=== PATIENT | female | born 1940 | race Caucasian/White ===

== ENCOUNTER 2021-02-06 19:51 | Inpatient (IN) | payer MEDICARE, BC ==
[2021-02-06] MEDS ORDERED: Sodium Chloride 0.9% 10 ML Syringe FLUSH PRN (20:02)
[2021-02-06] MEDS ORDERED: Sodium Chloride 0.9% 1,000 ML IV SCH (20:45)
[2021-02-06] MEDS ORDERED: cefTRIAXone 1 GM in Sodium Chloride 0.9% 50 ML IV ONE (22:15)
--- NOTE | 2021-02-06 23:00 | EDM.PDOC ---
ED HPI GENERAL MEDICAL PROBLEM - General Chief Complaint: Cardiovascular Problem Stated Complaint: WEAKNESS/HEART RATE OFF Time Seen by Provider: 02/06/21 19:56 Source of Information: Reports: Patient, RN Notes Reviewed History Limitations: Reports: Other (confused at times to situation, alert to self and place, day and time) - History of Present Illness INITIAL COMMENTS - FREE TEXT/NARRATIVE: Renay presents today for complaints of palpitations, chills, feeling shaky, sick to her stomach. She denies nausea, states "I am sick to my stomach". Patient repeatedly asked to open her eyes during exam. GCS 15. She states she has not taken her medications since 02/04/2021 in the evening. Renay was brought in by neighbors after she telephoned them. They state they found her walking around, not making sense when she spoke. Upon presentation Renay is answering questions, has equal strength to all extremities, equal tactile sensation to all extremities. No fever, tachycardia or abnormal blood pressure. - Related Data Allergies Allergy/AdvReac Type Severity Reaction Status Date / Time methotrexate Allergy Cannot Verified 01/06/14 13:48 Remember Home Meds: Home Meds Aspirin [Low Dose Aspirin EC] 81 mg PO DAILY 04/19/16 [History] Biotin 5,000 mcg PO DAILY 04/19/16 [History] Gabapentin [Neurontin] 600 mg PO BID 04/19/16 [History] Gluc White 2KCl/Chondr/Vit C/Herminio [Glucosamine-Chondr Complex] 1,500 mg PO BID 04/19/16 [History] Levothyroxine Sodium [Synthroid] 100 mcg PO ACBREAKFAST 04/19/16 [History] Loperamide [Imodium] 2 mg PO DAILY 04/19/16 [History] Oxybutynin Chloride 5 mg PO DAILY 04/19/16 [History] Ubidecarenone [Coenzyme Q10] 10 mg PO DAILY 04/19/16 [History] Calcium Carbonate/Vitamin D3 [Calcium 600 + Vit D Tablet] 1 tab PO DAILY 05/20/19 [History] Metoprolol Tartrate [Lopressor] 12.5 mg PO BID 05/20/19 [History] Amiodarone [Cordarone] 200 mg PO DAILY 12/10/20 [History] Bumetanide 0.5 mg PO DAILY 12/10/20 [History] Rivaroxaban [Xarelto] 15 mg PO DAILY 12/10/20 [History] Spironolactone [Aldactone] 12.5 mg PO DAILY 12/10/20 [History] atorvaSTATin [Lipitor] 20 mg PO DAILY 12/10/20 [History] Bumetanide [Bumex] 0.5 mg PO DAILY 02/06/21 [History] Clopidogrel [Plavix] 75 mg PO DAILY 02/06/21 [History] Cyanocobalamin (Vitamin B-12) [B-12] 1,200 mcg PO DAILY 02/06/21 [History] Furosemide [Lasix] 20 mg PO DAILY 02/06/21 [History] Gabapentin [Neurontin] 600 mg PO BID 02/06/21 [History] Multivitamin [Multi-Day Vitamins] 1 tab PO DAILY 02/06/21 [History] Simvastatin 20 mg PO ACDINNER 02/06/21 [History] Tamoxifen [Nolvadex] 20 mg PO DAILY 02/06/21 [History] Zolpidem Tartrate [Ambien] 10 mg PO BEDTIME PRN 02/06/21 [History] Past Medical History HEENT History: Reports: None Cardiovascular History: Reports: Afib, NH, Stents Respiratory History: Reports: None Gastrointestinal History: Reports: None Genitourinary History: Reports: None 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 R shoulder injury, fell 08/02/19. right knee pain Neurological History: Reports: None Psychiatric History: Reports: None Endocrine/Metabolic History: Reports: Hypothyroidism Hematologic History: Reports: None Immunologic History: Reports: None Oncologic (Cancer) History: Reports: Breast Dermatologic History: Reports: None, Other (See Below) Other Dermatologic History: skin cancer left lower leg with open wound. skin cancer on chest and neck - Infectious Disease History Infectious Disease History: Reports: Chicken Pox, Mumps - Past Surgical History Head Surgeries/Procedures: Reports: None Cardiovascular Surgical History: Reports: None GI Surgical History: Reports: Appendectomy, Hernia Repair/Other Female Surgical History: Reports: Breast Reconstruction, Hysterectomy, Mastectomy, Oophorectomy Musculoskeletal Surgical History: Reports: Hip Replacement Other Musculoskeletal Surgeries/Procedures:: bilateral hip replacements Oncologic Surgical History: Reports: Mastectomy Social & Family History - Tobacco Use Tobacco Use Status *Q: Never Tobacco User - Caffeine Use Caffeine Use: Reports: Coffee - Recreational Drug Use Recreational Drug Use: No ED ROS GENERAL - Review of Systems Review Of Systems: See Below Constitutional: Reports: Fever, Chills, Weakness, Diaphoresis HEENT: Reports: No Symptoms Respiratory: Reports: No Symptoms Cardiovascular: Reports: No Symptoms Endocrine: Reports: No Symptoms GI/Abdominal: Reports: Other (patient states "I am sick to my stomach"). Denies: Abdominal Pain, Anorexia, Black Stool, Bloody Stool, Constipation, Diarrhea, Distension, Nausea, Vomiting : Reports: No Symptoms Musculoskeletal: Reports: No Symptoms Skin: Reports: No Symptoms Neurological: Reports: Confusion, Difficulty Walking, Weakness. Denies: Dizziness, Headache, Numbness, Paresthesia, Pre-Existing Deficit, Seizure, Syncope, Tingling, Tremors, Trouble Speaking, Change in Speech Psychiatric: Reports: Anxiety, Confusion. Denies: Agitation, Depression, Hallucinations, Suicidal Ideation Hematologic/Lymphatic: Reports: No Symptoms Immunologic: Reports: No Symptoms ED EXAM, GENERAL - Physical Exam Exam: See Below Exam Limited By: Other (GCS 15, confused at times, however alert x 3) General Appearance: Alert, WD/WN, Moderate Distress Eye Exam: Bilateral Eye: EOMI, Normal Inspection, PERRL Ears: Normal External Exam, Normal Canal, Hearing Grossly Normal, Normal TMs Throat/Mouth: Normal Inspection, Normal Lips, Normal Gums, Normal Oropharynx, Normal Voice, No Airway Compromise Head: Atraumatic, Normocephalic Neck: Normal Inspection, Supple, Non-Tender, Full Range of Motion. No: Lymphadenopathy (R), Lymphadenopathy (L) Respiratory/Chest: No Respiratory Distress, Lungs Clear, Normal Breath Sounds, No Accessory Muscle Use, Chest Non-Tender. No: Crackles, Rales, Rhonchi, Wheezing Cardiovascular: Normal Peripheral Pulses, Regular Rate, Rhythm, No Edema, No Gallop, No Murmur, No Rub Peripheral Pulses: 4+: Dorsalis Pedis (L), Dorsalis Pedis (R) GI/Abdominal: Normal Bowel Sounds, Soft, Non-Tender, No Organomegaly, No Distention, No Mass, Pelvis Stable. No: Guarding, Rigid, Rebound, Tender Back Exam: Normal Inspection, Full Range of Motion. No: CVA Tenderness (R), CVA Tenderness (L) Extremities: Normal Range of Motion, Normal Capillary Refill, Leg Pain (left leg to area of chronic wound secondary to skin cancer removal x 4. Trace edema bilateral lower extremities). No: Increased Warmth Neurological: Alert, Oriented, Normal Reflexes, No Motor/Sensory Deficits, Inattentive Psychiatric: Anxious Skin Exam: Warm, Dry, No Rash, Rash (urticaria in macular/papular patches to bilateral upper thighs ), Wound/Incision (chronic wound to LLE, history of skin cancer removal x 4, wound management per Dr. Arrington. Dressing removed and replaced. Noted circular wound withslough to wound bed, surrounding tissues pink without erythema or fluctuance. ). No: Ecchymosis, Erythema, Increased Warmth Lymphatic: No Adenopathy #1 Interpretation EKG Date: 02/06/21 Time: 20:05 Rhythm: NSR Rate (Beats/Min): 66 P-Wave: Present QRS: LBBB ST-T: Normal QT: Normal Comparison: NA - No Prior EKG Course - Vital Signs Last Recorded V/S: Last Vital Signs Temp 37.3 C 02/06/21 20:30 Pulse 68 02/06/21 22:43 Resp 11 L 02/06/21 22:43 BP 140/58 L 02/06/21 22:43 Pulse Ox 98 02/06/21 22:43 - Orders/Labs/Meds Orders: Active Orders 24 hr Category Date Time Status EKG Documentation Completion [RC] ASDIRECTED Care 02/06/21 20:03 Active Chest 1V Frontal [CR] Stat Exams 02/06/21 20:02 Taken Head wo Cont [CT] Stat Exams 02/06/21 23:06 Ordered CULTURE URINE [RM] Stat Lab 02/06/21 23:43 Ordered Sodium Chloride 0.9% [Normal Saline] 1,000 ml Med 02/06/21 20:45 Active IV ASDIRECTED Sodium Chloride 0.9% [Saline Flush] Med 02/06/21 20:02 Active 10 ml FLUSH ASDIRECTED PRN Saline Lock Insert [OM.PC] Routine Oth 02/06/21 20:02 Ordered EKG 12 Lead [EK] Routine Ther 02/06/21 20:02 Ordered Medication Orders Sodium Chloride (Normal Saline) 1,000 mls @ 500 mls/hr IV ASDIRECTED HERI Last Admin: 02/06/21 21:01 Dose: 500 mls/hr Documented by: ANGIE Sodium Chloride (Sodium Chloride 0.9% 10 Ml Syringe) 10 ml FLUSH ASDIRECTED PRN PRN Reason: Keep Vein Open Last Admin: 02/06/21 21:01 Dose: 10 ml Documented by: ANGIE Labs: Laboratory Tests 02/06/21 02/06/21 02/06/21 Range/Units 20:13 20:13 20:21 WBC 6.1 (4.5-11.0) K/uL RBC 3.71 (3.30-5.50) M/uL Hgb 12.2 (12.0-15.0) g/dL Hct 36.7 (36.0-48.0) % MCV 99 H (80-98) fL MCH 33 H (27-31) pg MCHC 33 (32-36) % Plt Count 127 L (150-400) K/uL Neut % (Auto) Residential Counselor Lymph % (Auto) Residential Counselor Dupage % (Auto) Residential Counselor Eos % (Auto) Residential Counselor Baso % (Auto) Residential Counselor Add Manual Diff Yes Neutrophils % (Manual) 75 H (36-66) % Band Neutrophils % 9 (5-11) % Lymphocytes % (Manual) 10 L (24-44) % Monocytes % (Manual) 3 (2-6) % Eosinophils % (Manual) 3 (2-4) % Anisocytosis Rare Macrocytosis Rare Sodium 138 L (140-148) mmol/L Potassium 4.3 (3.6-5.2) mmol/L Chloride 103 (100-108) mmol/L Carbon Dioxide 22 (21-32) mmol/L Anion Gap 17.3 H (5.0-14.0) mmol/L BUN 18 (7-18) mg/dL Creatinine 1.5 H (0.6-1.0) mg/dL Est Cr Clr Drug Dosing 27.36 mL/min Estimated GFR (MDRD) 33 L (>60) Glucose 93 (74-106) mg/dL Lactic Acid 2.0 (0.4-2.0) mmol/L Calcium 8.3 L (8.5-10.1) mg/dL Total Bilirubin 1.5 H (0.2-1.0) mg/dL AST 66 H (15-37) U/L ALT 63 (12-78) U/L Alkaline Phosphatase 149 H (46-116) U/L Troponin I < 0.017 (0.000-0.056) ng/mL C-Reactive Protein (0.0-0.3) mg/dL NT-Pro-B Natriuret Pep 8765 H (5-450) pg/mL Total Protein 7.0 (6.4-8.2) g/dL Albumin 2.9 L (3.4-5.0) g/dL Globulin 4.1 H (2.3-3.5) g/dL Albumin/Globulin Ratio 0.7 L (1.2-2.2) TSH, Ultra Sensitive 12.432 H (0.358-3.740) uIU/mL Urine Color (YELLOW) Urine Appearance (CLEAR) Urine pH (5.0-8.0) Ur Specific Alpine (1.008-1.030) Urine Protein (NEGATIVE) mg/dL Urine Glucose (UA) (NEGATIVE) mg/dL Urine Ketones (NEGATIVE) mg/dL Urine Occult Blood (NEGATIVE) Urine Nitrite (NEGATIVE) Urine Bilirubin (NEGATIVE) Urine Urobilinogen (0.2-1.0) EU/dL Ur Leukocyte Esterase (NEGATIVE) Urine RBC (0-5) Urine WBC (0-5) Ur Epithelial Cells Amorphous Sediment Urine Bacteria Urine Mucus Urine Other Urine Opiates Screen (NEGATIVE) Ur Oxycodone Screen (NEGATIVE) Urine Methadone Screen (NEGATIVE) Ur Propoxyphene Screen (NEGATIVE) Ur Barbiturates Screen (NEGATIVE) Ur Tricyclics Screen (NEGATIVE) Ur Phencyclidine Scrn (NEGATIVE) Ur Amphetamine Screen (NEGATIVE) U Methamphetamines Scrn (NEGATIVE) Urine MDMA Screen (NEGATIVE) U Benzodiazepines Scrn (NEGATIVE) U Cocaine Metab Screen (NEGATIVE) U Marijuana (THC) Screen (NEGATIVE) 02/06/21 02/06/21 02/06/21 Range/Units 20:21 20:42 21:06 WBC (4.5-11.0) K/uL RBC (3.30-5.50) M/uL Hgb (12.0-15.0) g/dL Hct (36.0-48.0) % MCV (80-98) fL MCH (27-31) pg MCHC (32-36) % Plt Count (150-400) K/uL Neut % (Auto) Lymph % (Auto) Dupage % (Auto) Eos % (Auto) Baso % (Auto) Add Manual Diff Neutrophils % (Manual) (36-66) % Band Neutrophils % (5-11) % Lymphocytes % (Manual) (24-44) % Monocytes % (Manual) (2-6) % Eosinophils % (Manual) (2-4) % Anisocytosis Macrocytosis Sodium (140-148) mmol/L Potassium (3.6-5.2) mmol/L Chloride (100-108) mmol/L Carbon Dioxide (21-32) mmol/L Anion Gap (5.0-14.0) mmol/L BUN (7-18) mg/dL Creatinine (0.6-1.0) mg/dL Est Cr Clr Drug Dosing mL/min Estimated GFR (MDRD) (>60) Glucose (74-106) mg/dL Lactic Acid (0.4-2.0) mmol/L Calcium (8.5-10.1) mg/dL Total Bilirubin (0.2-1.0) mg/dL AST (15-37) U/L ALT (12-78) U/L Alkaline Phosphatase (46-116) U/L Troponin I (0.000-0.056) ng/mL C-Reactive Protein 4.02 H (0.0-0.3) mg/dL NT-Pro-B Natriuret Pep (5-450) pg/mL Total Protein (6.4-8.2) g/dL Albumin (3.4-5.0) g/dL Globulin (2.3-3.5) g/dL Albumin/Globulin Ratio (1.2-2.2) TSH, Ultra Sensitive (0.358-3.740) uIU/mL Urine Color Yellow (YELLOW) Urine Appearance Clear (CLEAR) Urine pH 6.5 (5.0-8.0) Ur Specific Alpine 1.020 (1.008-1.030) Urine Protein 30 H (NEGATIVE) mg/dL Urine Glucose (UA) Negative (NEGATIVE) mg/dL Urine Ketones 15 H (NEGATIVE) mg/dL Urine Occult Blood Trace-intact H (NEGATIVE) Urine Nitrite Negative (NEGATIVE) Urine Bilirubin Moderate H (NEGATIVE) Urine Urobilinogen 0.2 (0.2-1.0) EU/dL Ur Leukocyte Esterase Negative (NEGATIVE) Urine RBC 0-5 (0-5) Urine WBC 0-5 (0-5) Ur Epithelial Cells Occasional Amorphous Sediment Occasional Urine Bacteria Occasional Urine Mucus Moderate Urine Other See note Urine Opiates Screen Negative (NEGATIVE) Ur Oxycodone Screen Negative (NEGATIVE) Urine Methadone Screen Negative (NEGATIVE) Ur Propoxyphene Screen Negative (NEGATIVE) Ur Barbiturates Screen Negative (NEGATIVE) Ur Tricyclics Screen Presumptive positive H (NEGATIVE) Ur Phencyclidine Scrn Negative (NEGATIVE) Ur Amphetamine Screen Negative (NEGATIVE) U Methamphetamines Scrn Presumptive positive H (NEGATIVE) Urine MDMA Screen Negative (NEGATIVE) U Benzodiazepines Scrn Presumptive positive H (NEGATIVE) U Cocaine Metab Screen Negative (NEGATIVE) U Marijuana (THC) Screen Negative (NEGATIVE) Patient lab work reviewed, BNP 8765, CRP 4.02, TSH 12.432, Creat 1.5, GFR 33, UA with rbc, wbc, ketone, bacteria. Patient informed of +UDS for tricyclics, methamphetamines and benzodiazepines. Patient stated, I don't take meth or benzos. Patient advised to be admitted hospital for Palpitations, CHF (congestive heart failure), Polysubstance abuse, Weakness generalized, OSMAR (acute kidney injury), Dehydration, Hypothyroidism, UTI (urinary tract infection), Chronic wound of extremity, Carcinoma of skin. She is in agreement with plan. Hospitalist notified. We will administer rocephin 1 gram IV. Meds: Medications Generic Name Dose Route Start Last Admin Trade Name Freq PRN Reason Stop Dose Admin Sodium Chloride 1,000 mls @ 500 mls/hr 02/06/21 20:45 02/06/21 21:01 Normal Saline IV 500 mls/hr ASDIRECTED HERI Administration Sodium Chloride 10 ml 02/06/21 20:02 02/06/21 21:01 Sodium Chloride 0.9% 10 Ml Syringe FLUSH 10 ml ASDIRECTED PRN Administration Keep Vein Open Discontinued Medications Generic Name Dose Route Start Last Admin Trade Name Freq PRN Reason Stop Dose Admin Ceftriaxone Sodium 1 gm/ 50 mls @ 100 mls/hr 02/06/21 22:15 02/06/21 22:27 Sodium Chloride IV 02/06/21 22:44 100 mls/hr ONETIME ONE Administration - Radiology Interpretation Free Text/Narrative:: One view chest x-ray reviewed, wet read, patchy infiltrate versus fluid congestion RLL. Radiologist read pending. - Re-Assessments/Exams Free Text/Narrative Re-Assessment/Exam: 02/06/21 22:40 Patient report and assessment to Marcy Smalls NP, will admit the patient for: Palpitations, CHF (congestive heart failure), Polysubstance abuse, Weakness generalized, OSMAR (acute kidney injury), Dehydration, Hypothyroidism, UTI (urinary tract infection), Chronic wound of extremity, Carcinoma of skin Please see nurses notes. Departure - Departure Time of Disposition: 22:57 Disposition: Refer to Observation Condition: Fair Clinical Impression: Palpitations, CHF (congestive heart failure), Polysubstance abuse, Weakness generalized, OSMAR (acute kidney injury), Dehydration, Hypothyroidism, UTI (urinary tract infection), Chronic wound of extremity, Carcinoma of skin Referrals: PCP,None [Primary Care Provider] - Forms: ED Department Discharge Sepsis Event Note (ED) - Evaluation Sepsis Screening Result: No Definite Risk - Focused Exam Vital Signs: Vital Signs Temp Pulse Resp BP BP Pulse Ox 02/06/21 22:43 68 11 L 140/58 L 98 02/06/21 21:35 67 14 124/56 L 94 L 02/06/21 21:00 65 5 L 129/51 L 94 L 02/06/21 20:30 37.3 C 16 120/34 L 94 L 02/06/21 20:01 36.5 C 72 26 H 126/52 L 98 - My Orders Last 24 Hours: My Active Orders 02/06/21 20:02 Chest 1V Frontal [CR] Stat Sodium Chloride 0.9% [Saline Flush] 10 ml FLUSH ASDIRECTED PRN Saline Lock Insert [OM.PC] Routine EKG 12 Lead [EK] Routine 02/06/21 20:03 EKG Documentation Completion [RC] ASDIRECTED 02/06/21 20:45 Sodium Chloride 0.9% [Normal Saline] 1,000 ml IV ASDIRECTED 02/06/21 23:43 CULTURE URINE [RM] Stat - Assessment/Plan Last 24 Hours: My Active Orders 02/06/21 20:02 Chest 1V Frontal [CR] Stat Sodium Chloride 0.9% [Saline Flush] 10 ml FLUSH ASDIRECTED PRN Saline Lock Insert [OM.PC] Routine EKG 12 Lead [EK] Routine 02/06/21 20:03 EKG Documentation Completion [RC] ASDIRECTED 02/06/21 20:45 Sodium Chloride 0.9% [Normal Saline] 1,000 ml IV ASDIRECTED 02/06/21 23:43 CULTURE URINE [] Stat Assessment:: Palpitations, CHF (congestive heart failure), Polysubstance abuse, Weakness generalized, OSMAR (acute kidney injury), Dehydration, Hypothyroidism, UTI (urinary tract infection), Chronic wound of extremity, Carcinoma of skin Plan: Renay will be admitted per Marcy Smalls NP to [facility]
--- NOTE | 2021-02-07 00:26 | PCM.HP.2 ---
H&P History of Present Illness - General Date of Service: 02/06/21 Admit Problem/Dx: Admission Diagnosis/Problem Admission Diagnosis/Problem Congestive heart failure Source of Information: Patient, Provider, RN History Limitations: Reports: No Limitations - History of Present Illness Initial Comments - Free Text/Narative: chief complaints: weakness, shortness of breath - Reports has been sick since or Monday. Has not eating or taken her medications for two days. On she was working downstairs and came up to main level- had shortness of breath, felt really cold and had shaking chills without fever. nauseated. Monday and Monday stay in bed all day and miesha continues call the Neighbors to take her to the hospital. The Neighbors report found Mrs. Stone outside confused and wandering around. Onset of Symptoms: Reports: Gradual Symptom Onset Date: 02/03/21 Duration of Symptoms: Reports: Getting Worse Location: Reports: Generalized Improves with: Reports: Rest Worsens with: Reports: Movement Context: Reports: Other (not feeling well for 2-3 days) Associated Symptoms: Reports: Fever/Chills, Loss of Appetite, Malaise, Nausea/Vomiting, Shortness of Breath, Weakness - Related Data Allergies/Adverse Reactions: Allergies Allergy/AdvReac Type Severity Reaction Status Date / Time methotrexate Allergy Cannot Verified 01/06/14 13:48 Remember Home Medications: Home Meds Aspirin [Low Dose Aspirin EC] 81 mg PO DAILY 04/19/16 [History] Biotin 5,000 mcg PO DAILY 04/19/16 [History] Gabapentin [Neurontin] 600 mg PO BID 04/19/16 [History] Gluc White 2KCl/Chondr/Vit C/Herminio [Glucosamine-Chondr Complex] 1,500 mg PO BID 04/19/16 [History] Levothyroxine Sodium [Synthroid] 100 mcg PO ACBREAKFAST 04/19/16 [History] Loperamide [Imodium] 2 mg PO DAILY 04/19/16 [History] Oxybutynin Chloride 5 mg PO DAILY 04/19/16 [History] Ubidecarenone [Coenzyme Q10] 10 mg PO DAILY 04/19/16 [History] Calcium Carbonate/Vitamin D3 [Calcium 600 + Vit D Tablet] 1 tab PO DAILY 05/20/19 [History] Metoprolol Tartrate [Lopressor] 12.5 mg PO BID 05/20/19 [History] Amiodarone [Cordarone] 200 mg PO DAILY 12/10/20 [History] Bumetanide 0.5 mg PO DAILY 12/10/20 [History] Rivaroxaban [Xarelto] 15 mg PO DAILY 12/10/20 [History] Spironolactone [Aldactone] 12.5 mg PO DAILY 12/10/20 [History] atorvaSTATin [Lipitor] 20 mg PO DAILY 12/10/20 [History] Bumetanide [Bumex] 0.5 mg PO DAILY 02/06/21 [History] Clopidogrel [Plavix] 75 mg PO DAILY 02/06/21 [History] Cyanocobalamin (Vitamin B-12) [B-12] 1,200 mcg PO DAILY 02/06/21 [History] Furosemide [Lasix] 20 mg PO DAILY 02/06/21 [History] Gabapentin [Neurontin] 600 mg PO BID 02/06/21 [History] Multivitamin [Multi-Day Vitamins] 1 tab PO DAILY 02/06/21 [History] Simvastatin 20 mg PO ACDINNER 02/06/21 [History] Tamoxifen [Nolvadex] 20 mg PO DAILY 02/06/21 [History] Zolpidem Tartrate [Ambien] 10 mg PO BEDTIME PRN 02/06/21 [History] Past Medical History HEENT History: Reports: None Cardiovascular History: Reports: Afib, [place], Stents Respiratory History: Reports: None Gastrointestinal History: Reports: None Genitourinary History: Reports: None 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 R shoulder injury, fell 08/02/19. right knee pain Neurological History: Reports: None Psychiatric History: Reports: None Endocrine/Metabolic History: Reports: Hypothyroidism Hematologic History: Reports: None Immunologic History: Reports: None Oncologic (Cancer) History: Reports: Breast Dermatologic History: Reports: None, Other (See Below) Other Dermatologic History: skin cancer left lower leg with open wound. skin cancer on chest and neck - Infectious Disease History Infectious Disease History: Reports: Chicken Pox, Mumps - Past Surgical History Head Surgeries/Procedures: Reports: None Cardiovascular Surgical History: Reports: None GI Surgical History: Reports: Appendectomy, Hernia Repair/Other Female Surgical History: Reports: Breast Reconstruction, Hysterectomy, Mastectomy, Oophorectomy Musculoskeletal Surgical History: Reports: Hip Replacement Other Musculoskeletal Surgeries/Procedures:: bilateral hip replacements Oncologic Surgical History: Reports: Mastectomy Social & Family History - Tobacco Use Tobacco Use Status *Q: Never Tobacco User - Caffeine Use Caffeine Use: Reports: Coffee - Recreational Drug Use Recreational Drug Use: No - Living Situation & Occupation Living situation: Reports: Alone Occupation: Retired (lives alone in [place], [place]. Has 3 sons. 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.) H&P Review of Systems - Review of Systems: Review Of Systems: See Below General: Reports: Malaise, Weakness, Fatigue, Decreased Appetite (reports not eating for two days) HEENT: Reports: Glasses Pulmonary: Reports: Shortness of Breath Cardiovascular: Reports: Dyspnea on Exertion Gastrointestinal: Reports: Constipation (from chemotherapy and radiation- numbness in rectal area- unable to determine when BM will occur), Diarrhea, Decreased Appetite, Nausea Genitourinary: Reports: Incontinence (due to radiation and chemo) Musculoskeletal: Reports: Other (bilateral hip replacement x 4, shoulder surgery, pending knee surgery) Skin: Reports: Wound (chronic wound of left lower leg being followed by [facility]), Other (skin cancer with non-healing wound of the left lower leg) Psychiatric: Reports: Confusion (found wandering and confused by Neighbor, now alert and orientated.) Neurological: Reports: No Symptoms Hematologic/Lymphatic: Reports: No Symptoms Immunologic: Reports: No Symptoms Exam - Exam Exam: See Below - Vital Signs Vital Signs: Last Vital Signs Temp 99.1 F 02/06/21 20:30 Pulse 68 02/06/21 22:43 Resp 11 L 02/06/21 22:43 BP 140/58 L 02/06/21 22:43 Pulse Ox 98 02/06/21 22:43 Weight: 140 lb - Exam Quality Assessment: DVT Prophylaxis General: Alert, Oriented, Other (neat and well groomed, pleasant) HEENT: PERRLA, Hearing Intact, Mucosa Moist & [place], Nares Patent, Normal Nasal Septum, Posterior Pharynx Clear, Conjunctiva Clear, EOMI, EACs Clear, TMs Clear Neck: Supple, Trachea Midline, 2 Lungs: Clear to Auscultation, Normal Respiratory Effort Cardiovascular: Regular Rate, Regular Rhythm GI/Abdominal Exam: Normal Bowel Sounds, Soft, Non-Tender, No Distention, No Abnormal Bruit, No Mass (Female) Exam: Deferred Rectal (Female) Exam: Deferred Back Exam: Normal Inspection, Full Range of Motion, NT Extremities: No Pedal Edema, Normal Capillary Refill, Other (dressing with coban noted to the left lower leg) Peripheral Pulses: 2+: Radial (L), Radial (R), Dorsalis Pedis (L), Dorsalis Pedis (R) Skin: Warm, Dry, Wound (chronic wound noted to the left lower leg) Neurological: Cranial Nerves Intact, Reflexes Equal Bilateral, Strength Equal Bilateral Neuro Extensive - Mental Status: Alert, Oriented x3, Normal Mood/Affect, Normal Cognition, Memory Intact Neuro Extensive - Motor, Sensory, Reflexes: CN II-XII Intact, Normal Gait, Normal Reflexes Psychiatric: Alert, Normal Affect, Normal Mood - Patient Data Lab Results Last 24 hrs: Laboratory Results - last 24 hr 02/06/21 02/06/21 02/06/21 Range/Units 20:13 20:13 20:21 WBC 6.1 (4.5-11.0) K/uL RBC 3.71 (3.30-5.50) M/uL Hgb 12.2 (12.0-15.0) g/dL Hct 36.7 (36.0-48.0) % MCV 99 H (80-98) fL MCH 33 H (27-31) pg MCHC 33 (32-36) % Plt Count 127 L (150-400) K/uL Neut % (Auto) Arch Support Technician Lymph % (Auto) Arch Support Technician Maury % (Auto) Arch Support Technician Eos % (Auto) Arch Support Technician Baso % (Auto) Arch Support Technician Add Manual Diff Yes Neutrophils % (Manual) 75 H (36-66) % Band Neutrophils % 9 (5-11) % Lymphocytes % (Manual) 10 L (24-44) % Monocytes % (Manual) 3 (2-6) % Eosinophils % (Manual) 3 (2-4) % Anisocytosis Rare Macrocytosis Rare Sodium 138 L (140-148) mmol/L Potassium 4.3 (3.6-5.2) mmol/L Chloride 103 (100-108) mmol/L Carbon Dioxide 22 (21-32) mmol/L Anion Gap 17.3 H (5.0-14.0) mmol/L BUN 18 (7-18) mg/dL Creatinine 1.5 H (0.6-1.0) mg/dL Est Cr Clr Drug Dosing 27.36 mL/min Estimated GFR (MDRD) 33 L (>60) Glucose 93 (74-106) mg/dL Lactic Acid 2.0 (0.4-2.0) mmol/L Calcium 8.3 L (8.5-10.1) mg/dL Total Bilirubin 1.5 H (0.2-1.0) mg/dL AST 66 H (15-37) U/L ALT 63 (12-78) U/L Alkaline Phosphatase 149 H (46-116) U/L Troponin I < 0.017 (0.000-0.056) ng/mL C-Reactive Protein (0.0-0.3) mg/dL NT-Pro-B Natriuret Pep 8765 H (5-450) pg/mL Total Protein 7.0 (6.4-8.2) g/dL Albumin 2.9 L (3.4-5.0) g/dL Globulin 4.1 H (2.3-3.5) g/dL Albumin/Globulin Ratio 0.7 L (1.2-2.2) TSH, Ultra Sensitive 12.432 H (0.358-3.740) uIU/mL Urine Color (YELLOW) Urine Appearance (CLEAR) Urine pH (5.0-8.0) Ur Specific [place] (1.008-1.030) Urine Protein (NEGATIVE) mg/dL Urine Glucose (UA) (NEGATIVE) mg/dL Urine Ketones (NEGATIVE) mg/dL Urine Occult Blood (NEGATIVE) Urine Nitrite (NEGATIVE) Urine Bilirubin (NEGATIVE) Urine Urobilinogen (0.2-1.0) EU/dL Ur Leukocyte Esterase (NEGATIVE) Urine RBC (0-5) Urine WBC (0-5) Ur Epithelial Cells Amorphous Sediment Urine Bacteria Urine Mucus Urine Other Urine Opiates Screen (NEGATIVE) Ur Oxycodone Screen (NEGATIVE) Urine Methadone Screen (NEGATIVE) Ur Propoxyphene Screen (NEGATIVE) Ur Barbiturates Screen (NEGATIVE) Ur Tricyclics Screen (NEGATIVE) Ur Phencyclidine Scrn (NEGATIVE) Ur Amphetamine Screen (NEGATIVE) U Methamphetamines Scrn (NEGATIVE) Urine MDMA Screen (NEGATIVE) U Benzodiazepines Scrn (NEGATIVE) U Cocaine Metab Screen (NEGATIVE) U Marijuana (THC) Screen (NEGATIVE) 02/06/21 02/06/21 02/06/21 Range/Units 20:21 20:42 21:06 WBC (4.5-11.0) K/uL RBC (3.30-5.50) M/uL Hgb (12.0-15.0) g/dL Hct (36.0-48.0) % MCV (80-98) fL MCH (27-31) pg MCHC (32-36) % Plt Count (150-400) K/uL Neut % (Auto) Lymph % (Auto) Maury % (Auto) Eos % (Auto) Baso % (Auto) Add Manual Diff Neutrophils % (Manual) (36-66) % Band Neutrophils % (5-11) % Lymphocytes % (Manual) (24-44) % Monocytes % (Manual) (2-6) % Eosinophils % (Manual) (2-4) % Anisocytosis Macrocytosis Sodium (140-148) mmol/L Potassium (3.6-5.2) mmol/L Chloride (100-108) mmol/L Carbon Dioxide (21-32) mmol/L Anion Gap (5.0-14.0) mmol/L BUN (7-18) mg/dL Creatinine (0.6-1.0) mg/dL Est Cr Clr Drug Dosing mL/min Estimated GFR (MDRD) (>60) Glucose (74-106) mg/dL Lactic Acid (0.4-2.0) mmol/L Calcium (8.5-10.1) mg/dL Total Bilirubin (0.2-1.0) mg/dL AST (15-37) U/L ALT (12-78) U/L Alkaline Phosphatase (46-116) U/L Troponin I (0.000-0.056) ng/mL C-Reactive Protein 4.02 H (0.0-0.3) mg/dL NT-Pro-B Natriuret Pep (5-450) pg/mL Total Protein (6.4-8.2) g/dL Albumin (3.4-5.0) g/dL Globulin (2.3-3.5) g/dL Albumin/Globulin Ratio (1.2-2.2) TSH, Ultra Sensitive (0.358-3.740) uIU/mL Urine Color Yellow (YELLOW) Urine Appearance Clear (CLEAR) Urine pH 6.5 (5.0-8.0) Ur Specific [place] 1.020 (1.008-1.030) Urine Protein 30 H (NEGATIVE) mg/dL Urine Glucose (UA) Negative (NEGATIVE) mg/dL Urine Ketones 15 H (NEGATIVE) mg/dL Urine Occult Blood Trace-intact H (NEGATIVE) Urine Nitrite Negative (NEGATIVE) Urine Bilirubin Moderate H (NEGATIVE) Urine Urobilinogen 0.2 (0.2-1.0) EU/dL Ur Leukocyte Esterase Negative (NEGATIVE) Urine RBC 0-5 (0-5) Urine WBC 0-5 (0-5) Ur Epithelial Cells Occasional Amorphous Sediment Occasional Urine Bacteria Occasional Urine Mucus Moderate Urine Other See note Urine Opiates Screen Negative (NEGATIVE) Ur Oxycodone Screen Negative (NEGATIVE) Urine Methadone Screen Negative (NEGATIVE) Ur Propoxyphene Screen Negative (NEGATIVE) Ur Barbiturates Screen Negative (NEGATIVE) Ur Tricyclics Screen Presumptive positive H (NEGATIVE) Ur Phencyclidine Scrn Negative (NEGATIVE) Ur Amphetamine Screen Negative (NEGATIVE) U Methamphetamines Scrn Presumptive positive H (NEGATIVE) Urine MDMA Screen Negative (NEGATIVE) U Benzodiazepines Scrn Presumptive positive H (NEGATIVE) U Cocaine Metab Screen Negative (NEGATIVE) U Marijuana (THC) Screen Negative (NEGATIVE) Result Diagrams: 02/06/21 20:13 02/06/21 20:13 Sepsis Event Note - Evaluation Sepsis Screening Result: No Definite Risk - Focused Exam Vital Signs: Vital Signs Temp Pulse Resp BP BP Pulse Ox 02/06/21 22:43 68 11 L 140/58 L 98 02/06/21 21:35 67 14 124/56 L 94 L 02/06/21 21:00 65 5 L 129/51 L 94 L 02/06/21 20:30 99.1 F 16 120/34 L 94 L 02/06/21 20:01 97.7 F 72 26 H 126/52 L 98 - Problem List (1) CHF (congestive heart failure) SNOMED Code(s): 50328491 ICD Code: I50.9 - HEART FAILURE, UNSPECIFIED Status: Acute Priority: High Current Visit: Yes Qualifiers: Heart failure chronicity: acute on chronic (2) OSMAR (acute kidney injury) SNOMED Code(s): 10327350, 24622458 ICD Code: N17.9 - ACUTE KIDNEY FAILURE, UNSPECIFIED Status: Acute Priority: High Current Visit: Yes (3) Carcinoma of skin SNOMED Code(s): 960483698, 890148209 ICD Code: C44.99 - OTHER SPECIFIED MALIGNANT NEOPLASM OF SKIN, UNSPECIFIED Status: Acute Priority: Low Current Visit: Yes (4) Chronic wound of extremity SNOMED Code(s): 959778526, 119152605, 718361890 ICD Code: LNT6403 - Status: Acute Priority: Low Current Visit: Yes (5) Hypothyroidism SNOMED Code(s): 06372721 ICD Code: E03.9 - HYPOTHYROIDISM, UNSPECIFIED Status: Acute Priority: Low Current Visit: Yes Qualifiers: Hypothyroidism type: unspecified Qualified Code(s): E03.9 - Hypothyroidism, unspecified (6) Polysubstance abuse SNOMED Code(s): 461735791 ICD Code: F19.10 - OTHER PSYCHOACTIVE SUBSTANCE ABUSE, UNCOMPLICATED Status: Acute Priority: High Current Visit: Yes (7) UTI (urinary tract infection) SNOMED Code(s): 34117844 ICD Code: N39.0 - URINARY TRACT INFECTION, SITE NOT SPECIFIED Status: Acute Priority: Medium Current Visit: Yes Qualifiers: Encounter type: initial encounter Problem List Initiated/Reviewed/Updated: Yes Orders Last 24hrs: Active Orders 24 hr Category Date Time Status Patient Status Manage Transfer [TRANSFER] Routine ADT 02/06/21 23:17 Active EKG Documentation Completion [RC] ASDIRECTED Care 02/06/21 20:03 Active Chest 1V Frontal [CR] Stat Exams 02/06/21 20:02 Taken Head wo Cont [CT] Stat Exams 02/06/21 23:06 Taken CULTURE URINE [RM] Stat Lab 02/06/21 23:43 Received Sodium Chloride 0.9% [Normal Saline] 1,000 ml Med 02/06/21 20:45 Active IV ASDIRECTED Sodium Chloride 0.9% [Saline Flush] Med 02/06/21 20:02 Active 10 ml FLUSH ASDIRECTED PRN Saline Lock Insert [OM.PC] Routine Oth 02/06/21 20:02 Ordered Resuscitation Status Routine Resus Stat 02/06/21 23:19 Ordered EKG 12 Lead [EK] Routine Ther 02/06/21 20:02 Ordered Medication Orders Sodium Chloride (Normal Saline) 1,000 mls @ 500 mls/hr IV ASDIRECTED HERI Last Admin: 02/06/21 21:01 Dose: 500 mls/hr Documented by: ANGIE Sodium Chloride (Sodium Chloride 0.9% 10 Ml Syringe) 10 ml FLUSH ASDIRECTED PRN PRN Reason: Keep Vein Open Last Admin: 02/06/21 21:01 Dose: 10 ml Documented by: ANGIE Assessment/Plan Comment:: Assessment/Plan Comment:: ASSESSMENT AND PLAN - CONGESTIVE HEART FAILURE, UTI, POLYSUBSTANCE ABUSE, OSMAR, DEHYDRATION, CHRONIC WOUND LEFT LOWER LEG, CARCINOMA OF LEFT LOWER LEG, HYPOTHYROIDISM CONGESTIVE HEART FAILURE - Reports has been sick since or Monday. Has not eating or taken her medications for two days. On she was working downstairs and came up to main level- had shortness of breath, felt really cold and had shaking chills without fever. nauseated. Monday and Monday stay in bed all day and shakes continues call the Neighbors to take her to the hospital. The Neighbors report found Mrs. Stone outside confused and wandering around. ER labs : Pro-BnP 8765, Na+ 138, K+ 4.3, CL 103, ANION GAP 17.3, BUN 18, Cr. 1.5, GFR, glucose 93, CRP 4.02, TSH 12.43 URINE DRUG SCREEN +TRICYCLICS +METHAMPHETAMINES +BENZODIAZEPINE, HEAD CT with contrast to rule any acute pathology Covid vaccination completed at 08/2020 CONGESTIVE HEART FAILURE- weakness, shortness of breath for 2-3 days -IV fluids Normal Saline at 75 ml/hr overnight for rehydration -Continue outpatient medication- -Metoprolol 12.5 mg po bid -Amiodarone 200 mg daily -Bumex 0.5 mg po daily -Lasix 20 mg po daily -Spironolactone 12.5 mg daily -repeat labs in am- CBC, BMP DEHYDRATION -IV fluids -Monitor I&O OSMAR- This will need close monitoring during diuresis. -monitor I&O Urinary Tract Infection- -IV Rocephin 1 gram every 24 hours -Urine culture pending Polysubstance abuse- Mrs. Stone was found by neighbors this evening confused and wandering around. ER Dept did a UDS by cath. with positive results. Mrs. Stone denies any drug use, no one has been at the house. This is very distressful and she is requesting recheck of urine. -repeat UDS with confirmation of any positive results CARCINOMA OF SKIN AND CHRONIC WOUND LEFT LOWER LEG FROM SKIN CANCER -Dr. Arrington is Provider for this, seen as Outpatient [facility] Hypothyroidism- TSH 12.43 in ER -restart Synthroid 100 mcg po daily Maintenance issues - - DVT prophylaxis - Xarelto 15 mg daily - GI prophylaxis -IV Protonix 40 mg at hs. - Nutrition - regular diet - White catheter - not indicated CODE STATUS - FULL- will let her Sons decide if she needs to be kept on life support. Admission justification -this patient will be admitted for inpatient services and is medically appropriate meeting medical necessity for inpatient admission as outlined in my documentation. I reasonably expect the patient will require inpatient services that span a period time over 2 midnights. I reasonably expect this patient to be discharged or transferred within 96 hours [facility]. Disposition -I would anticipate discharge to Home Primary care physician -[facility]- Cardiology, Dermatology, Rheumatology Hospitalist- Pako Pitts M.D. - Mortality Measure Prognosis:: Good - Mortality Measure Prognosis:: Good
[2021-02-07] MEDS ORDERED: oxyCODONE 5 MG Tab PO PRN (00:31)
[2021-02-07] MEDS ORDERED: Bisacodyl 5 MG Tab PO PRN (00:31)
[2021-02-07] MEDS ORDERED: Zolpidem 5 MG Tab PO PRN ×2 (00:31→01:10)
[2021-02-07] MEDS ORDERED: Albuterol 0.083% 2.5 MG/3 ML Neb Soln NEB PRN (00:31)
[2021-02-07] MEDS ORDERED: Docusate Sodium 100 MG Cap PO PRN (00:31)
[2021-02-07] MEDS ORDERED: Albuterol/Ipratropium 3.0-0.5 MG/3 ML Neb Soln NEB PRN (00:31)
[2021-02-07] MEDS ORDERED: Ondansetron 4 MG Tab.DIS PO PRN (00:31)
[2021-02-07] MEDS ORDERED: Metoprolol Tartrate 25 MG Tab PO SCH (00:31)
[2021-02-07] MEDS ORDERED: Morphine 2 MG/ML SYRINGE IVPUSH PRN (00:31)
--- NOTE | 2021-02-07 00:32 | CRLCT ---
For Patients: As a result of the Century Cures Act, medical imaging exams and procedure reports are released immediately into your electronic medical record. You may view this report before your referring provider. If you have questions, please contact your health care provider. HISTORY: Confusion. TECHNIQUE: Noncontrast head CT. COMPARISON: 04/23/2009. FINDINGS: There is no acute intracranial hemorrhage or acute ischemic infarct. Mild chronic small vessel ischemic changes along with mild chronic volume loss. There is no mass-effect or midline shift. No hydrocephalus. No extra-axial collection or hematoma. No acute loss of lopez-white differentiation. The mastoid air cells are clear. Paranasal sinuses are clear. No skull fracture. IMPRESSION: 1. No acute intracranial disease. 2. Mild chronic volume loss and mild chronic small vessel ischemic changes. Dictated by Charan Knapp MD @ 02/07/2021 12:31:35 AM Please note that all CT scans at this facility use dose modulation, iterative reconstruction, and/or weight-based dosing when appropriate to reduce radiation dose to as low as reasonably achievable. Dictated by: Charan Knapp MD @ 02/07/2021 00:31:40 (Electronically Signed)
[2021-02-07] MEDS: Bumetanide 1 MG Tab PO SCH ×2 (01:15→08:21)
[2021-02-07] MEDS: Acetaminophen 325 MG Tab PO PRN ×4 (01:15→19:44)
[2021-02-07] MEDS: Sodium Chloride 0.9% 1,000 ML IV SCH ×2 (01:35→05:57)
[2021-02-07] MEDS: Ondansetron 4 MG/2 ML SDV IV PRN (02:40)
[2021-02-07] MEDS ORDERED: Levothyroxine 100 MCG Tab PO SCH (07:30)
[2021-02-07] MEDS: diphenhydrAMINE 25 MG Cap PO PRN ×3 (08:20→21:23)
[2021-02-07] MEDS: Levothyroxine 112 MCG Tab PO SCH (08:21)
[2021-02-07] MEDS: Cyanocobalamin (Vitamin B12) 1,000 MCG Tab PO SCH (08:22)
[2021-02-07] MEDS: Metoprolol Succinate 25 MG Tab.ER PO SCH ×2 (08:22→21:19)
[2021-02-07] MEDS: Oxybutynin 5 MG Tab PO SCH (08:22)
[2021-02-07] MEDS: Amiodarone 200 MG Tab PO SCH (08:22)
[2021-02-07] MEDS: Spironolactone 25 MG Tab PO SCH (08:22)
[2021-02-07] MEDS: atorvaSTATin 20 MG Tab PO SCH (08:23)
[2021-02-07] MEDS: Calcium Carbonate/Vitamin D3 1500 MG-400 Units Tab PO SCH (08:23)
[2021-02-07] MEDS: Gabapentin 300 MG Cap PO SCH ×2 (08:23→21:23)
[2021-02-07] MEDS: Furosemide 20 MG Tab PO SCH (08:23)
[2021-02-07] MEDS: Aspirin 81 MG Tab.EC PO SCH (08:23)
[2021-02-07] MEDS: Multivitamins with Iron/Calcium/Folic Acid/Minerals Tab PO SCH (08:23)
[2021-02-07] MEDS: Loperamide 2 MG Cap PO SCH (08:23)
[2021-02-07] MEDS: Clopidogrel 75 MG Tab PO SCH (08:23)
[2021-02-07] MEDS ORDERED: Pantoprazole 40 MG Vial IV SCH (09:00)
[2021-02-07] MEDS ORDERED: Tamoxifen 10 MG Tab PO SCH (09:00)
[2021-02-07] MEDS ORDERED: Bumetanide 1 MG Tab PO SCH (09:00)
[2021-02-07] MEDS ORDERED: Sodium Chloride 0.9% 1,000 ML IV SCH (12:45)
--- NOTE | 2021-02-07 12:55 | PCM.PN ---
- General Info Date of Service: 02/07/21 Subjective Update: Ms. Stone is a 80-year-old woman who was admitted through the emergency department last night with weakness and shortness of breath developing over the past few days. She was felt to be somewhat dehydrated and has received cautious IV fluids through the night. This morning she is noted to have a significant temperature elevation greater than 102 degrees and also urticaria on her arms legs and trunk. Repeat chest x-ray and urinalysis are clear showing no evidence of obvious infection. She does report symptoms of mid abdominal discomfort. She did receive ceftriaxone in the emergency department for possible urinary tract infection. On review of urinalysis there is no good evidence of infection so further antibiotics will be held pending further evaluation. Functional Status: Reports: Tolerating Diet, Ambulating, Urinating - Review of Systems General: Reports: Fever, Weakness, Fatigue, Chills Pulmonary: Reports: No Symptoms Cardiovascular: Reports: No Symptoms Gastrointestinal: Reports: Abdominal Pain, Nausea. Denies: Diarrhea, Difficulty Swallowing, Hematochezia, Melena, Vomiting Genitourinary: Reports: No Symptoms - Patient Data Vitals - Most Recent: Last Vital Signs Temp 100.2 F 02/07/21 11:44 Pulse 85 02/07/21 11:44 Resp 16 02/07/21 11:44 BP 117/74 02/07/21 11:44 Pulse Ox 95 02/07/21 11:44 Weight - Most Recent: 144 lb I&O - Last 24 Hours: Intake & Output 02/06/21 02/07/21 02/07/21 22:59 06:59 14:59 Output Total 800 1000 Balance -800 -1000 Lab Results Last 24 Hours: Laboratory Results - last 24 hr 02/06/21 02/06/21 02/06/21 Range/Units 20:13 20:13 20:21 WBC 6.1 (4.5-11.0) K/uL RBC 3.71 (3.30-5.50) M/uL Hgb 12.2 (12.0-15.0) g/dL Hct 36.7 (36.0-48.0) % MCV 99 H (80-98) fL MCH 33 H (27-31) pg MCHC 33 (32-36) % Plt Count 127 L (150-400) K/uL Neut % (Auto) District Director Lymph % (Auto) District Director [place] % (Auto) District Director Eos % (Auto) District Director Baso % (Auto) District Director Add Manual Diff Yes Neutrophils % (Manual) 75 H (36-66) % Band Neutrophils % 9 (5-11) % Lymphocytes % (Manual) 10 L (24-44) % Monocytes % (Manual) 3 (2-6) % Eosinophils % (Manual) 3 (2-4) % Anisocytosis Rare Macrocytosis Rare Sodium 138 L (140-148) mmol/L Potassium 4.3 (3.6-5.2) mmol/L Chloride 103 (100-108) mmol/L Carbon Dioxide 22 (21-32) mmol/L Anion Gap 17.3 H (5.0-14.0) mmol/L BUN 18 (7-18) mg/dL Creatinine 1.5 H (0.6-1.0) mg/dL Est Cr Clr Drug Dosing 27.36 mL/min Estimated GFR (MDRD) 33 L (>60) Glucose 93 (74-106) mg/dL Lactic Acid 2.0 (0.4-2.0) mmol/L Calcium 8.3 L (8.5-10.1) mg/dL Total Bilirubin 1.5 H (0.2-1.0) mg/dL AST 66 H (15-37) U/L ALT 63 (12-78) U/L Alkaline Phosphatase 149 H (46-116) U/L Troponin I < 0.017 (0.000-0.056) ng/mL C-Reactive Protein (0.0-0.3) mg/dL NT-Pro-B Natriuret Pep 8765 H (5-450) pg/mL Total Protein 7.0 (6.4-8.2) g/dL Albumin 2.9 L (3.4-5.0) g/dL Globulin 4.1 H (2.3-3.5) g/dL Albumin/Globulin Ratio 0.7 L (1.2-2.2) TSH, Ultra Sensitive 12.432 H (0.358-3.740) uIU/mL Urine Color (YELLOW) Urine Appearance (CLEAR) Urine pH (5.0-8.0) Ur Specific Benson (1.008-1.030) Urine Protein (NEGATIVE) mg/dL Urine Glucose (UA) (NEGATIVE) mg/dL Urine Ketones (NEGATIVE) mg/dL Urine Occult Blood (NEGATIVE) Urine Nitrite (NEGATIVE) Urine Bilirubin (NEGATIVE) Urine Urobilinogen (0.2-1.0) EU/dL Ur Leukocyte Esterase (NEGATIVE) Urine RBC (0-5) Urine WBC (0-5) Ur Epithelial Cells Amorphous Sediment Urine Bacteria Urine Mucus Urine Other Urine Opiates Screen (NEGATIVE) Ur Oxycodone Screen (NEGATIVE) Urine Methadone Screen (NEGATIVE) Ur Propoxyphene Screen (NEGATIVE) Ur Barbiturates Screen (NEGATIVE) Ur Tricyclics Screen (NEGATIVE) Ur Phencyclidine Scrn (NEGATIVE) Ur Amphetamine Screen (NEGATIVE) U Methamphetamines Scrn (NEGATIVE) Urine MDMA Screen (NEGATIVE) U Benzodiazepines Scrn (NEGATIVE) U Cocaine Metab Screen (NEGATIVE) U Marijuana (THC) Screen (NEGATIVE) 02/06/21 02/06/21 02/06/21 Range/Units 20:21 20:42 21:06 WBC (4.5-11.0) K/uL RBC (3.30-5.50) M/uL Hgb (12.0-15.0) g/dL Hct (36.0-48.0) % MCV (80-98) fL MCH (27-31) pg MCHC (32-36) % Plt Count (150-400) K/uL Neut % (Auto) Lymph % (Auto) [place] % (Auto) Eos % (Auto) Baso % (Auto) Add Manual Diff Neutrophils % (Manual) (36-66) % Band Neutrophils % (5-11) % Lymphocytes % (Manual) (24-44) % Monocytes % (Manual) (2-6) % Eosinophils % (Manual) (2-4) % Anisocytosis Macrocytosis Sodium (140-148) mmol/L Potassium (3.6-5.2) mmol/L Chloride (100-108) mmol/L Carbon Dioxide (21-32) mmol/L Anion Gap (5.0-14.0) mmol/L BUN (7-18) mg/dL Creatinine (0.6-1.0) mg/dL Est Cr Clr Drug Dosing mL/min Estimated GFR (MDRD) (>60) Glucose (74-106) mg/dL Lactic Acid (0.4-2.0) mmol/L Calcium (8.5-10.1) mg/dL Total Bilirubin (0.2-1.0) mg/dL AST (15-37) U/L ALT (12-78) U/L Alkaline Phosphatase (46-116) U/L Troponin I (0.000-0.056) ng/mL C-Reactive Protein 4.02 H (0.0-0.3) mg/dL NT-Pro-B Natriuret Pep (5-450) pg/mL Total Protein (6.4-8.2) g/dL Albumin (3.4-5.0) g/dL Globulin (2.3-3.5) g/dL Albumin/Globulin Ratio (1.2-2.2) TSH, Ultra Sensitive (0.358-3.740) uIU/mL Urine Color Yellow (YELLOW) Urine Appearance Clear (CLEAR) Urine pH 6.5 (5.0-8.0) Ur Specific Benson 1.020 (1.008-1.030) Urine Protein 30 H (NEGATIVE) mg/dL Urine Glucose (UA) Negative (NEGATIVE) mg/dL Urine Ketones 15 H (NEGATIVE) mg/dL Urine Occult Blood Trace-intact H (NEGATIVE) Urine Nitrite Negative (NEGATIVE) Urine Bilirubin Moderate H (NEGATIVE) Urine Urobilinogen 0.2 (0.2-1.0) EU/dL Ur Leukocyte Esterase Negative (NEGATIVE) Urine RBC 0-5 (0-5) Urine WBC 0-5 (0-5) Ur Epithelial Cells Occasional Amorphous Sediment Occasional Urine Bacteria Occasional Urine Mucus Moderate Urine Other See note Urine Opiates Screen Negative (NEGATIVE) Ur Oxycodone Screen Negative (NEGATIVE) Urine Methadone Screen Negative (NEGATIVE) Ur Propoxyphene Screen Negative (NEGATIVE) Ur Barbiturates Screen Negative (NEGATIVE) Ur Tricyclics Screen Presumptive positive H (NEGATIVE) Ur Phencyclidine Scrn Negative (NEGATIVE) Ur Amphetamine Screen Negative (NEGATIVE) U Methamphetamines Scrn Presumptive positive H (NEGATIVE) Urine MDMA Screen Negative (NEGATIVE) U Benzodiazepines Scrn Presumptive positive H (NEGATIVE) U Cocaine Metab Screen Negative (NEGATIVE) U Marijuana (THC) Screen Negative (NEGATIVE) 02/07/21 02/07/21 02/07/21 Range/Units 00:44 05:25 05:25 WBC 8.2 (4.5-11.0) K/uL RBC 3.40 (3.30-5.50) M/uL Hgb 11.3 L (12.0-15.0) g/dL Hct 34.3 L (36.0-48.0) % MCV 101 H (80-98) fL MCH 33 H (27-31) pg MCHC 33 (32-36) % Plt Count 110 L (150-400) K/uL Neut % (Auto) 82.8 H Lymph % (Auto) 10.4 L Webster % (Auto) 5.0 Eos % (Auto) 0.5 L Baso % (Auto) 1.3 H Add Manual Diff Neutrophils % (Manual) (36-66) % Band Neutrophils % (5-11) % Lymphocytes % (Manual) (24-44) % Monocytes % (Manual) (2-6) % Eosinophils % (Manual) (2-4) % Anisocytosis Macrocytosis Sodium 139 L (140-148) mmol/L Potassium 3.8 (3.6-5.2) mmol/L Chloride 103 (100-108) mmol/L Carbon Dioxide 26 (21-32) mmol/L Anion Gap 13.8 (5.0-14.0) mmol/L BUN 15 (7-18) mg/dL Creatinine 1.3 H (0.6-1.0) mg/dL Est Cr Clr Drug Dosing 31.57 mL/min Estimated GFR (MDRD) 40 L (>60) Glucose 82 (74-106) mg/dL Lactic Acid (0.4-2.0) mmol/L Calcium 7.8 L (8.5-10.1) mg/dL Total Bilirubin (0.2-1.0) mg/dL AST (15-37) U/L ALT (12-78) U/L Alkaline Phosphatase (46-116) U/L Troponin I (0.000-0.056) ng/mL C-Reactive Protein (0.0-0.3) mg/dL NT-Pro-B Natriuret Pep (5-450) pg/mL Total Protein (6.4-8.2) g/dL Albumin (3.4-5.0) g/dL Globulin (2.3-3.5) g/dL Albumin/Globulin Ratio (1.2-2.2) TSH, Ultra Sensitive (0.358-3.740) uIU/mL Urine Color (YELLOW) Urine Appearance (CLEAR) Urine pH (5.0-8.0) Ur Specific Benson (1.008-1.030) Urine Protein (NEGATIVE) mg/dL Urine Glucose (UA) (NEGATIVE) mg/dL Urine Ketones (NEGATIVE) mg/dL Urine Occult Blood (NEGATIVE) Urine Nitrite (NEGATIVE) Urine Bilirubin (NEGATIVE) Urine Urobilinogen (0.2-1.0) EU/dL Ur Leukocyte Esterase (NEGATIVE) Urine RBC (0-5) Urine WBC (0-5) Ur Epithelial Cells Amorphous Sediment Urine Bacteria Urine Mucus Urine Other Urine Opiates Screen Negative (NEGATIVE) Ur Oxycodone Screen Negative (NEGATIVE) Urine Methadone Screen Negative (NEGATIVE) Ur Propoxyphene Screen Negative (NEGATIVE) Ur Barbiturates Screen Negative (NEGATIVE) Ur Tricyclics Screen Negative (NEGATIVE) Ur Phencyclidine Scrn Negative (NEGATIVE) Ur Amphetamine Screen Negative (NEGATIVE) U Methamphetamines Scrn Negative (NEGATIVE) Urine MDMA Screen Negative (NEGATIVE) U Benzodiazepines Scrn Negative (NEGATIVE) U Cocaine Metab Screen Negative (NEGATIVE) U Marijuana (THC) Screen Negative (NEGATIVE) 02/07/21 Range/Units 10:10 WBC (4.5-11.0) K/uL RBC (3.30-5.50) M/uL Hgb (12.0-15.0) g/dL Hct (36.0-48.0) % MCV (80-98) fL MCH (27-31) pg MCHC (32-36) % Plt Count (150-400) K/uL Neut % (Auto) Lymph % (Auto) Webster % (Auto) Eos % (Auto) Baso % (Auto) Add Manual Diff Neutrophils % (Manual) (36-66) % Band Neutrophils % (5-11) % Lymphocytes % (Manual) (24-44) % Monocytes % (Manual) (2-6) % Eosinophils % (Manual) (2-4) % Anisocytosis Macrocytosis Sodium (140-148) mmol/L Potassium (3.6-5.2) mmol/L Chloride (100-108) mmol/L Carbon Dioxide (21-32) mmol/L Anion Gap (5.0-14.0) mmol/L BUN (7-18) mg/dL Creatinine (0.6-1.0) mg/dL Est Cr Clr Drug Dosing mL/min Estimated GFR (MDRD) (>60) Glucose (74-106) mg/dL Lactic Acid (0.4-2.0) mmol/L Calcium (8.5-10.1) mg/dL Total Bilirubin (0.2-1.0) mg/dL AST (15-37) U/L ALT (12-78) U/L Alkaline Phosphatase (46-116) U/L Troponin I (0.000-0.056) ng/mL C-Reactive Protein (0.0-0.3) mg/dL NT-Pro-B Natriuret Pep (5-450) pg/mL Total Protein (6.4-8.2) g/dL Albumin (3.4-5.0) g/dL Globulin (2.3-3.5) g/dL Albumin/Globulin Ratio (1.2-2.2) TSH, Ultra Sensitive (0.358-3.740) uIU/mL Urine Color Yellow (YELLOW) Urine Appearance Clear (CLEAR) Urine pH 6.5 (5.0-8.0) Ur Specific Benson 1.020 (1.008-1.030) Urine Protein Negative (NEGATIVE) mg/dL Urine Glucose (UA) Negative (NEGATIVE) mg/dL Urine Ketones Negative (NEGATIVE) mg/dL Urine Occult Blood Trace-intact H (NEGATIVE) Urine Nitrite Negative (NEGATIVE) Urine Bilirubin Negative (NEGATIVE) Urine Urobilinogen 0.2 (0.2-1.0) EU/dL Ur Leukocyte Esterase Negative (NEGATIVE) Urine RBC 0-5 (0-5) Urine WBC Not seen (0-5) Ur Epithelial Cells Rare Amorphous Sediment Not seen Urine Bacteria Not seen Urine Mucus Not seen Urine Other Urine Opiates Screen (NEGATIVE) Ur Oxycodone Screen (NEGATIVE) Urine Methadone Screen (NEGATIVE) Ur Propoxyphene Screen (NEGATIVE) Ur Barbiturates Screen (NEGATIVE) Ur Tricyclics Screen (NEGATIVE) Ur Phencyclidine Scrn (NEGATIVE) Ur Amphetamine Screen (NEGATIVE) U Methamphetamines Scrn (NEGATIVE) Urine MDMA Screen (NEGATIVE) U Benzodiazepines Scrn (NEGATIVE) U Cocaine Metab Screen (NEGATIVE) U Marijuana (THC) Screen (NEGATIVE) Med Orders - Current: Current Medications Acetaminophen (Acetaminophen 325 Mg Tab) 650 mg PO Q4H PRN PRN Reason: Pain (Mild 1-3)/fever Last Admin: 02/07/21 10:38 Dose: 650 mg Documented by: Albuterol (Albuterol 0.083% 2.5 Mg/3 Ml Neb Soln) 2.5 mg NEB Q4H PRN PRN Reason: Shortness Of Breath/wheezing Albuterol/Ipratropium (Albuterol/Ipratropium 3.0-0.5 Mg/3 Ml Neb Soln) 3 ml NEB QID PRN PRN Reason: Shortness Of Breath/wheezing Amiodarone HCl (Amiodarone 200 Mg Tab) 200 mg PO DAILY [facility] Last Admin: 02/07/21 08:22 Dose: 200 mg Documented by: Aspirin (Aspirin 81 Mg Tab.Ec) 81 mg PO DAILY [facility] Last Admin: 02/07/21 08:23 Dose: 81 mg Documented by: Atorvastatin Calcium (Atorvastatin 20 Mg Tab) 20 mg PO DAILY [facility] Last Admin: 02/07/21 08:23 Dose: 20 mg Documented by: Bisacodyl (Bisacodyl 5 Mg Tab) 5 mg PO DAILY PRN PRN Reason: Constipation Bumetanide (Bumetanide 1 Mg Tab) 0.5 mg PO DAILY [facility] Last Admin: 02/07/21 08:21 Dose: 0.5 mg Documented by: Calcium Carbonate (Calcium Carbonate/Vitamin D3 1500 Mg-400 Units Tab) 1 tab PO DAILY [facility] Last Admin: 02/07/21 08:23 Dose: 1 tab Documented by: Clopidogrel Bisulfate (Clopidogrel 75 Mg Tab) 75 mg PO DAILY [facility] Last Admin: 02/07/21 08:23 Dose: 75 mg Documented by: Cyanocobalamin (Cyanocobalamin (Vitamin B12) 1,000 Mcg Tab) 1,000 mcg PO DAILY [facility] Last Admin: 02/07/21 08:22 Dose: 1,000 mcg Documented by: Diphenhydramine HCl (Diphenhydramine 25 Mg Cap) 25 mg PO Q6H PRN PRN Reason: Itching Last Admin: 02/07/21 08:20 Dose: 25 mg Documented by: Docusate Sodium (Docusate Sodium 100 Mg Cap) 100 mg PO BID PRN PRN Reason: Constipation Famotidine (Famotidine 20 Mg Tab) 20 mg PO BID [facility] Furosemide (Furosemide 20 Mg Tab) 20 mg PO DAILY [facility] Last Admin: 02/07/21 08:23 Dose: 20 mg Documented by: Gabapentin (Gabapentin 300 Mg Cap) 600 mg PO BID [facility] Last Admin: 02/07/21 08:23 Dose: 600 mg Documented by: Sodium Chloride (Normal Saline) 1,000 mls @ 50 mls/hr IV ASDIRECTED [facility] Levothyroxine Sodium (Levothyroxine 112 Mcg Tab) 112 mcg PO ACBREAKFAST [facility] Last Admin: 02/07/21 08:21 Dose: 112 mcg Documented by: Loperamide HCl (Loperamide 2 Mg Cap) 2 mg PO DAILY [facility] Last Admin: 02/07/21 08:23 Dose: 2 mg Documented by: Metoprolol Succinate (Metoprolol Succinate 25 Mg Tab.Er) 12.5 mg PO BID [facility] Last Admin: 02/07/21 08:22 Dose: 12.5 mg Documented by: Morphine Sulfate (Morphine 2 Mg/Ml Syringe) 2 mg IVPUSH Q2H PRN PRN Reason: Pain (severe 7-10) Last Admin: 02/07/21 02:40 Dose: 2 mg Documented by: Multivitamins/Minerals (Multivitamins With Iron/Calcium/Folic Acid/Minerals Tab) 1 tab PO DAILY [facility] Last Admin: 02/07/21 08:23 Dose: 1 tab Documented by: Ondansetron HCl (Ondansetron 4 Mg Tab.Dis) 4 mg PO Q6H PRN PRN Reason: Nausea able to take PO Ondansetron HCl (Ondansetron 4 Mg/2 Ml Sdv) 4 mg IV Q4H PRN PRN Reason: Nausea/Vomiting Last Admin: 02/07/21 02:40 Dose: 4 mg Documented by: Oxybutynin Chloride (Oxybutynin 5 Mg Tab) 5 mg PO DAILY [facility] Last Admin: 02/07/21 08:22 Dose: 5 mg Documented by: Oxycodone HCl (Oxycodone 5 Mg Tab) 5 mg PO Q4H PRN PRN Reason: Pain (moderate 4-6) Rivaroxaban (Rivaroxaban 15 Mg Tab) 15 mg PO QPM [facility] Sodium Chloride (Sodium Chloride 0.9% 10 Ml Syringe) 10 ml FLUSH ASDIRECTED PRN PRN Reason: Keep Vein Open Last Admin: 02/06/21 21:01 Dose: 10 ml Documented by: Spironolactone (Spironolactone 25 Mg Tab) 12.5 mg PO DAILY [facility] Last Admin: 02/07/21 08:22 Dose: 12.5 mg Documented by: Zolpidem Tartrate (Zolpidem 5 Mg Tab) 5 mg PO BEDTIME PRN PRN Reason: Sleep Last Admin: 02/07/21 01:18 Dose: 5 mg Documented by: Discontinued Medications Bumetanide (Bumetanide 1 Mg Tab) 0.5 mg PO DAILY [facility] Sodium Chloride (Normal Saline) 1,000 mls @ 500 mls/hr IV ASDIRECTED [facility] Last Admin: 02/06/21 21:01 Dose: 500 mls/hr Documented by: Ceftriaxone Sodium 1 gm/ (Sodium Chloride) 50 mls @ 100 mls/hr IV ONETIME ONE Stop: 02/06/21 22:44 Last Admin: 02/06/21 22:27 Dose: 100 mls/hr Documented by: Ceftriaxone Sodium 1 gm/ (Sodium Chloride) 50 mls @ 100 mls/hr IV Q24H [facility] Sodium Chloride (Normal Saline) 1,000 mls @ 75 mls/hr IV ASDIRECTED [facility] Last Admin: 02/07/21 05:57 Dose: 75 mls/hr Documented by: Levothyroxine Sodium (Levothyroxine 100 Mcg Tab) 100 mcg PO ACBREAKFAST [facility] Metoprolol Tartrate (Metoprolol Tartrate 25 Mg Tab) 12.5 mg PO BID [facility] Last Admin: 02/07/21 01:15 Dose: 12.5 mg Documented by: Pantoprazole Sodium (Pantoprazole 40 Mg Vial) 40 mg IV DAILY [facility] Last Admin: 02/07/21 11:39 Dose: 40 mg Documented by: Tamoxifen Citrate (Tamoxifen 10 Mg Tab) 20 mg PO DAILY [facility] Zolpidem Tartrate (Zolpidem 5 Mg Tab) 10 mg PO BEDTIME PRN PRN Reason: Sleep - Exam Quality Assessment: DVT Prophylaxis General: Alert, Oriented, Cooperative, Mild Distress Lungs: Clear to Auscultation, Normal Respiratory Effort Cardiovascular: Regular Rate, Regular Rhythm, No Murmurs GI/Abdominal Exam: Soft, No Organomegaly, Tender. No: Distended, Guarding, Rigid, Rebound Extremities: Non-Tender, No Pedal Edema - Patient Data Lab Results Last 24 hrs: Laboratory Results - last 24 hr 02/06/21 02/06/21 02/06/21 Range/Units 20:13 20:13 20:21 WBC 6.1 (4.5-11.0) K/uL RBC 3.71 (3.30-5.50) M/uL Hgb 12.2 (12.0-15.0) g/dL Hct 36.7 (36.0-48.0) % MCV 99 H (80-98) fL MCH 33 H (27-31) pg MCHC 33 (32-36) % Plt Count 127 L (150-400) K/uL Neut % (Auto) District Director Lymph % (Auto) District Director [place] % (Auto) District Director Eos % (Auto) District Director Baso % (Auto) District Director Add Manual Diff Yes Neutrophils % (Manual) 75 H (36-66) % Band Neutrophils % 9 (5-11) % Lymphocytes % (Manual) 10 L (24-44) % Monocytes % (Manual) 3 (2-6) % Eosinophils % (Manual) 3 (2-4) % Anisocytosis Rare Macrocytosis Rare Sodium 138 L (140-148) mmol/L Potassium 4.3 (3.6-5.2) mmol/L Chloride 103 (100-108) mmol/L Carbon Dioxide 22 (21-32) mmol/L Anion Gap 17.3 H (5.0-14.0) mmol/L BUN 18 (7-18) mg/dL Creatinine 1.5 H (0.6-1.0) mg/dL Est Cr Clr Drug Dosing 27.36 mL/min Estimated GFR (MDRD) 33 L (>60) Glucose 93 (74-106) mg/dL Lactic Acid 2.0 (0.4-2.0) mmol/L Calcium 8.3 L (8.5-10.1) mg/dL Total Bilirubin 1.5 H (0.2-1.0) mg/dL AST 66 H (15-37) U/L ALT 63 (12-78) U/L Alkaline Phosphatase 149 H (46-116) U/L Troponin I < 0.017 (0.000-0.056) ng/mL C-Reactive Protein (0.0-0.3) mg/dL NT-Pro-B Natriuret Pep 8765 H (5-450) pg/mL Total Protein 7.0 (6.4-8.2) g/dL Albumin 2.9 L (3.4-5.0) g/dL Globulin 4.1 H (2.3-3.5) g/dL Albumin/Globulin Ratio 0.7 L (1.2-2.2) TSH, Ultra Sensitive 12.432 H (0.358-3.740) uIU/mL Urine Color (YELLOW) Urine Appearance (CLEAR) Urine pH (5.0-8.0) Ur Specific Benson (1.008-1.030) Urine Protein (NEGATIVE) mg/dL Urine Glucose (UA) (NEGATIVE) mg/dL Urine Ketones (NEGATIVE) mg/dL Urine Occult Blood (NEGATIVE) Urine Nitrite (NEGATIVE) Urine Bilirubin (NEGATIVE) Urine Urobilinogen (0.2-1.0) EU/dL Ur Leukocyte Esterase (NEGATIVE) Urine RBC (0-5) Urine WBC (0-5) Ur Epithelial Cells Amorphous Sediment Urine Bacteria Urine Mucus Urine Other Urine Opiates Screen (NEGATIVE) Ur Oxycodone Screen (NEGATIVE) Urine Methadone Screen (NEGATIVE) Ur Propoxyphene Screen (NEGATIVE) Ur Barbiturates Screen (NEGATIVE) Ur Tricyclics Screen (NEGATIVE) Ur Phencyclidine Scrn (NEGATIVE) Ur Amphetamine Screen (NEGATIVE) U Methamphetamines Scrn (NEGATIVE) Urine MDMA Screen (NEGATIVE) U Benzodiazepines Scrn (NEGATIVE) U Cocaine Metab Screen (NEGATIVE) U Marijuana (THC) Screen (NEGATIVE) 02/06/21 02/06/21 02/06/21 Range/Units 20:21 20:42 21:06 WBC (4.5-11.0) K/uL RBC (3.30-5.50) M/uL Hgb (12.0-15.0) g/dL Hct (36.0-48.0) % MCV (80-98) fL MCH (27-31) pg MCHC (32-36) % Plt Count (150-400) K/uL Neut % (Auto) Lymph % (Auto) [place] % (Auto) Eos % (Auto) Baso % (Auto) Add Manual Diff Neutrophils % (Manual) (36-66) % Band Neutrophils % (5-11) % Lymphocytes % (Manual) (24-44) % Monocytes % (Manual) (2-6) % Eosinophils % (Manual) (2-4) % Anisocytosis Macrocytosis Sodium (140-148) mmol/L Potassium (3.6-5.2) mmol/L Chloride (100-108) mmol/L Carbon Dioxide (21-32) mmol/L Anion Gap (5.0-14.0) mmol/L BUN (7-18) mg/dL Creatinine (0.6-1.0) mg/dL Est Cr Clr Drug Dosing mL/min Estimated GFR (MDRD) (>60) Glucose (74-106) mg/dL Lactic Acid (0.4-2.0) mmol/L Calcium (8.5-10.1) mg/dL Total Bilirubin (0.2-1.0) mg/dL AST (15-37) U/L ALT (12-78) U/L Alkaline Phosphatase (46-116) U/L Troponin I (0.000-0.056) ng/mL C-Reactive Protein 4.02 H (0.0-0.3) mg/dL NT-Pro-B Natriuret Pep (5-450) pg/mL Total Protein (6.4-8.2) g/dL Albumin (3.4-5.0) g/dL Globulin (2.3-3.5) g/dL Albumin/Globulin Ratio (1.2-2.2) TSH, Ultra Sensitive (0.358-3.740) uIU/mL Urine Color Yellow (YELLOW) Urine Appearance Clear (CLEAR) Urine pH 6.5 (5.0-8.0) Ur Specific Benson 1.020 (1.008-1.030) Urine Protein 30 H (NEGATIVE) mg/dL Urine Glucose (UA) Negative (NEGATIVE) mg/dL Urine Ketones 15 H (NEGATIVE) mg/dL Urine Occult Blood Trace-intact H (NEGATIVE) Urine Nitrite Negative (NEGATIVE) Urine Bilirubin Moderate H (NEGATIVE) Urine Urobilinogen 0.2 (0.2-1.0) EU/dL Ur Leukocyte Esterase Negative (NEGATIVE) Urine RBC 0-5 (0-5) Urine WBC 0-5 (0-5) Ur Epithelial Cells Occasional Amorphous Sediment Occasional Urine Bacteria Occasional Urine Mucus Moderate Urine Other See note Urine Opiates Screen Negative (NEGATIVE) Ur Oxycodone Screen Negative (NEGATIVE) Urine Methadone Screen Negative (NEGATIVE) Ur Propoxyphene Screen Negative (NEGATIVE) Ur Barbiturates Screen Negative (NEGATIVE) Ur Tricyclics Screen Presumptive positive H (NEGATIVE) Ur Phencyclidine Scrn Negative (NEGATIVE) Ur Amphetamine Screen Negative (NEGATIVE) U Methamphetamines Scrn Presumptive positive H (NEGATIVE) Urine MDMA Screen Negative (NEGATIVE) U Benzodiazepines Scrn Presumptive positive H (NEGATIVE) U Cocaine Metab Screen Negative (NEGATIVE) U Marijuana (THC) Screen Negative (NEGATIVE) 02/07/21 02/07/21 02/07/21 Range/Units 00:44 05:25 05:25 WBC 8.2 (4.5-11.0) K/uL RBC 3.40 (3.30-5.50) M/uL Hgb 11.3 L (12.0-15.0) g/dL Hct 34.3 L (36.0-48.0) % MCV 101 H (80-98) fL MCH 33 H (27-31) pg MCHC 33 (32-36) % Plt Count 110 L (150-400) K/uL Neut % (Auto) 82.8 H Lymph % (Auto) 10.4 L Webster % (Auto) 5.0 Eos % (Auto) 0.5 L Baso % (Auto) 1.3 H Add Manual Diff Neutrophils % (Manual) (36-66) % Band Neutrophils % (5-11) % Lymphocytes % (Manual) (24-44) % Monocytes % (Manual) (2-6) % Eosinophils % (Manual) (2-4) % Anisocytosis Macrocytosis Sodium 139 L (140-148) mmol/L Potassium 3.8 (3.6-5.2) mmol/L Chloride 103 (100-108) mmol/L Carbon Dioxide 26 (21-32) mmol/L Anion Gap 13.8 (5.0-14.0) mmol/L BUN 15 (7-18) mg/dL Creatinine 1.3 H (0.6-1.0) mg/dL Est Cr Clr Drug Dosing 31.57 mL/min Estimated GFR (MDRD) 40 L (>60) Glucose 82 (74-106) mg/dL Lactic Acid (0.4-2.0) mmol/L Calcium 7.8 L (8.5-10.1) mg/dL Total Bilirubin (0.2-1.0) mg/dL AST (15-37) U/L ALT (12-78) U/L Alkaline Phosphatase (46-116) U/L Troponin I (0.000-0.056) ng/mL C-Reactive Protein (0.0-0.3) mg/dL NT-Pro-B Natriuret Pep (5-450) pg/mL Total Protein (6.4-8.2) g/dL Albumin (3.4-5.0) g/dL Globulin (2.3-3.5) g/dL Albumin/Globulin Ratio (1.2-2.2) TSH, Ultra Sensitive (0.358-3.740) uIU/mL Urine Color (YELLOW) Urine Appearance (CLEAR) Urine pH (5.0-8.0) Ur Specific Benson (1.008-1.030) Urine Protein (NEGATIVE) mg/dL Urine Glucose (UA) (NEGATIVE) mg/dL Urine Ketones (NEGATIVE) mg/dL Urine Occult Blood (NEGATIVE) Urine Nitrite (NEGATIVE) Urine Bilirubin (NEGATIVE) Urine Urobilinogen (0.2-1.0) EU/dL Ur Leukocyte Esterase (NEGATIVE) Urine RBC (0-5) Urine WBC (0-5) Ur Epithelial Cells Amorphous Sediment Urine Bacteria Urine Mucus Urine Other Urine Opiates Screen Negative (NEGATIVE) Ur Oxycodone Screen Negative (NEGATIVE) Urine Methadone Screen Negative (NEGATIVE) Ur Propoxyphene Screen Negative (NEGATIVE) Ur Barbiturates Screen Negative (NEGATIVE) Ur Tricyclics Screen Negative (NEGATIVE) Ur Phencyclidine Scrn Negative (NEGATIVE) Ur Amphetamine Screen Negative (NEGATIVE) U Methamphetamines Scrn Negative (NEGATIVE) Urine MDMA Screen Negative (NEGATIVE) U Benzodiazepines Scrn Negative (NEGATIVE) U Cocaine Metab Screen Negative (NEGATIVE) U Marijuana (THC) Screen Negative (NEGATIVE) 02/07/21 Range/Units 10:10 WBC (4.5-11.0) K/uL RBC (3.30-5.50) M/uL Hgb (12.0-15.0) g/dL Hct (36.0-48.0) % MCV (80-98) fL MCH (27-31) pg MCHC (32-36) % Plt Count (150-400) K/uL Neut % (Auto) Lymph % (Auto) Webster % (Auto) Eos % (Auto) Baso % (Auto) Add Manual Diff Neutrophils % (Manual) (36-66) % Band Neutrophils % (5-11) % Lymphocytes % (Manual) (24-44) % Monocytes % (Manual) (2-6) % Eosinophils % (Manual) (2-4) % Anisocytosis Macrocytosis Sodium (140-148) mmol/L Potassium (3.6-5.2) mmol/L Chloride (100-108) mmol/L Carbon Dioxide (21-32) mmol/L Anion Gap (5.0-14.0) mmol/L BUN (7-18) mg/dL Creatinine (0.6-1.0) mg/dL Est Cr Clr Drug Dosing mL/min Estimated GFR (MDRD) (>60) Glucose (74-106) mg/dL Lactic Acid (0.4-2.0) mmol/L Calcium (8.5-10.1) mg/dL Total Bilirubin (0.2-1.0) mg/dL AST (15-37) U/L ALT (12-78) U/L Alkaline Phosphatase (46-116) U/L Troponin I (0.000-0.056) ng/mL C-Reactive Protein (0.0-0.3) mg/dL NT-Pro-B Natriuret Pep (5-450) pg/mL Total Protein (6.4-8.2) g/dL Albumin (3.4-5.0) g/dL Globulin (2.3-3.5) g/dL Albumin/Globulin Ratio (1.2-2.2) TSH, Ultra Sensitive (0.358-3.740) uIU/mL Urine Color Yellow (YELLOW) Urine Appearance Clear (CLEAR) Urine pH 6.5 (5.0-8.0) Ur Specific Benson 1.020 (1.008-1.030) Urine Protein Negative (NEGATIVE) mg/dL Urine Glucose (UA) Negative (NEGATIVE) mg/dL Urine Ketones Negative (NEGATIVE) mg/dL Urine Occult Blood Trace-intact H (NEGATIVE) Urine Nitrite Negative (NEGATIVE) Urine Bilirubin Negative (NEGATIVE) Urine Urobilinogen 0.2 (0.2-1.0) EU/dL Ur Leukocyte Esterase Negative (NEGATIVE) Urine RBC 0-5 (0-5) Urine WBC Not seen (0-5) Ur Epithelial Cells Rare Amorphous Sediment Not seen Urine Bacteria Not seen Urine Mucus Not seen Urine Other Urine Opiates Screen (NEGATIVE) Ur Oxycodone Screen (NEGATIVE) Urine Methadone Screen (NEGATIVE) Ur Propoxyphene Screen (NEGATIVE) Ur Barbiturates Screen (NEGATIVE) Ur Tricyclics Screen (NEGATIVE) Ur Phencyclidine Scrn (NEGATIVE) Ur Amphetamine Screen (NEGATIVE) U Methamphetamines Scrn (NEGATIVE) Urine MDMA Screen (NEGATIVE) U Benzodiazepines Scrn (NEGATIVE) U Cocaine Metab Screen (NEGATIVE) U Marijuana (THC) Screen (NEGATIVE) Result Diagrams: 02/07/21 05:25 02/07/21 05:25 Sepsis Event Note - Evaluation Sepsis Screening Result: No Definite Risk - Focused Exam Vital Signs: Vital Signs Temp Temp Pulse Pulse Resp BP BP 02/07/21 11:44 100.2 F 85 16 117/74 02/07/21 11:08 100.8 F H 02/07/21 10:38 100.5 F 02/07/21 08:22 94 140/60 02/07/21 07:15 102.4 F H 80 16 127/52 L 02/07/21 07:02 99.7 F 02/07/21 06:33 100.6 F 02/07/21 06:32 100.6 F 02/07/21 02:33 100.1 F 89 18 140/60 02/07/21 01:15 128 H 152/59 H 02/07/21 00:49 97.4 F 67 16 152/59 H Pulse Ox 02/07/21 11:44 95 02/07/21 11:08 02/07/21 10:38 02/07/21 08:22 02/07/21 07:15 93 L 02/07/21 07:02 02/07/21 06:33 02/07/21 06:32 02/07/21 02:33 96 02/07/21 01:15 02/07/21 00:49 99 - Problem List Review Problem List Initiated/Reviewed/Updated: Yes - My Orders Last 24 Hours: My Active Orders 02/07/21 08:12 diphenhydrAMINE [Benadryl] 25 mg PO Q6H PRN 02/07/21 09:37 Chest 2V [CR] Stat 02/07/21 12:19 Abdomen Pelvis w Cont [CT] Stat 02/07/21 12:45 Famotidine [Pepcid] 20 mg PO BID Sodium Chloride 0.9% @ 50 MLS/HR(1000ml) Sodium Chloride 0.9% [Normal Saline] 1,000 ml IV ASDIRECTED 02/08/21 05:00 BASIC METABOLIC PANEL,BMP [CHEM] Timed CBC WITH AUTO DIFF [HEME] Timed MAGNESIUM [CHEM] Timed - Plan Plan:: ASSESSMENT AND PLAN FEBRILE ILLNESS- Reports has been sick since or Monday. Has not eating or taken her medications for two days. On she was working downstairs and came up to main level- had shortness of breath, felt really cold and had shaking chills without fever. nauseated. Monday and Monday stay in bed all day and miesha continues call [facility] to take her to the hospital. The [facility] report found Mrs. Stone outside confused and wandering around. Is noted to have a urticaria this morning as well as fever. Repeat chest x-ray and urinalysis showed no evidence of infection. She has reported symptoms of abdominal discomfort and nausea. 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 Arrington is Provider for this, seen as Outpatient Clinic Hypothyroidism- TSH 12.43 in ER -restart Synthroid 100 mcg po daily Maintenance issues - - DVT prophylaxis - Xarelto 15 mg daily - GI prophylaxis -not indicated - Nutrition - regular diet - White catheter - not indicated CODE STATUS - FULL CODE- will let her Sons decide if she needs to be kept on life support. Admission justification -this patient will be admitted for inpatient services and is medically appropriate meeting medical necessity for inpatient admission as outlined in my documentation. I reasonably expect the patient will require inpatient services that span a period time over 2 midnights. I reasonably expect this patient to be discharged or transferred within 96 hours [facility]. Disposition -I would anticipate discharge to Home Primary care physician -[facility]- Cardiology, Dermatology, Rheumatology Hospitalist- Pako Pitts M.D.
[2021-02-07] MEDS: Famotidine 20 MG Tab PO SCH ×2 (13:00→21:23)
[2021-02-07] MEDS ORDERED: Sodium Chloride 0.9% 500 ML IV ONE (13:50)
[2021-02-07] MEDS ORDERED: Vancomycin 1 GM SDV IV SCH (14:10)
[2021-02-07] MEDS ORDERED: Sodium Chloride 0.9% 1,000 ML IV ONE (14:26)
[2021-02-07] MEDS: Meropenem 1 GM in Sodium Chloride 0.9% 100 ML IV SCH ×2 (14:45→22:02)
[2021-02-07] MEDS ORDERED: Sodium Chloride 0.9% 10 ML Syringe FLUSH ONE (14:50)
[2021-02-07] MEDS ORDERED: Iopamidol 612 MG/ML 100 ML Bottle IV SCH (15:00)
--- NOTE | 2021-02-07 16:23 | CRLCT ---
For Patients: As a result of the Century Cures Act, medical imaging exams and procedure reports are released immediately into your electronic medical record. You may view this report before your referring provider. If you have questions, please contact your health care provider. Indication: Abdominal pain. Fever. Technique: Multiple contiguous axial images were obtained from the lung bases is symphysis pubis after the intravenous administration 96 milliliters [id number]. Please note that all CT scans at this facility use dose modulation, iterative reconstruction, and/or weight-based dosing when appropriate to reduce radiation dose to as low as reasonably achievable. Comparison: None Findings: The lung bases are clear. Heart is normal in size. No pericardial effusion is identified. Coronary artery calcifications are identified. Gallstones are identified. No intrahepatic biliary ductal dilatation is identified. The liver, spleen, pancreas, adrenals, and kidneys are normal. No hydronephrosis is identified. In the pelvis, the urinary bladder is normal. 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 Colonic diverticulosis is identified. No free air or free fluid is identified within the abdomen or pelvis. The appendix is not clearly identified. However, no inflammatory changes are identified in the right lower quadrant. Vascular calcifications of the aorta are identified. Degenerative changes of the spine are identified. Impression: Diverticulosis without evidence of diverticulitis. Cholelithiasis without evidence of cholecystitis. Please note that all CT scans at this facility use dose modulation, iterative reconstruction, and/or weight-based dosing when appropriate to reduce radiation dose to as low as reasonably achievable. Dictated by Kassie Calderon MD @ 02/07/2021 4:21:[address] Kassie Calderon @ Feb 07 2021 4:21PM
[2021-02-07] MEDS: Rivaroxaban 15 MG Tab PO SCH (16:58)
--- NOTE | 2021-02-07 18:28 | CRLUS ---
For Patients: As a result of the Century Cures Act, medical imaging exams and procedure reports are released immediately into your electronic medical record. You may view this report before your referring provider. If you have questions, please contact your health care provider. INDICATION: Fever, abdominal pain COMPARISON: CT 02/07/2021 TECHNIQUE: Real time lopez scale imaging and color Doppler analysis was performed of the right upper quadrant. FINDINGS: The patient`s liver is of normal size and has uniform echogenicity. There is a normal appearance of the hepatic IVC and proximal abdominal aorta. There is no evidence of ascites. The gallbladder measures 7 centimeters in length. Multiple echogenic stones are located within the gallbladder fundus, similar to the prior CT. Associated sludge is also present. The gallbladder wall measures 2 mm in thickness. The common bile duct is of normal size and measures 3 mm in diameter at the level of the randi hepatis. The pancreas appears normal. There is no evidence of a stone or hydronephrosis within the right kidney. The right kidney measures 10.8 cm in length. IMPRESSION: Multiple gallstones and sludge within the gallbladder lumen without evidence of cholecystitis. Dictated by Derek Obrien MD @ 02/07/2021 6:26:[address] Derek Obrien @ Feb 07 2021 6:26PM
[2021-02-07] MEDS ORDERED: cefTRIAXone 1 GM in Sodium Chloride 0.9% 50 ML IV SCH (21:10)
[2021-02-08] MEDS: Acetaminophen 325 MG Tab PO PRN ×5 (01:30→18:27)
[2021-02-08] MEDS: Sodium Chloride 0.9% 1,000 ML IV SCH ×4 (01:48→18:45)
[2021-02-08] MEDS: Meropenem 1 GM in Sodium Chloride 0.9% 100 ML IV SCH (05:47)
[2021-02-08] MEDS: Famotidine 20 MG Tab PO SCH ×2 (08:13→21:28)
[2021-02-08] MEDS: Cyanocobalamin (Vitamin B12) 1,000 MCG Tab PO SCH (08:13)
[2021-02-08] MEDS: Calcium Carbonate/Vitamin D3 1500 MG-400 Units Tab PO SCH (08:13)
[2021-02-08] MEDS: Gabapentin 300 MG Cap PO SCH ×2 (08:14→21:28)
[2021-02-08] MEDS: Loperamide 2 MG Cap PO SCH (08:14)
[2021-02-08] MEDS: Levothyroxine 112 MCG Tab PO SCH (08:14)
[2021-02-08] MEDS: Clopidogrel 75 MG Tab PO SCH (08:14)
[2021-02-08] MEDS: Aspirin 81 MG Tab.EC PO SCH (08:14)
[2021-02-08] MEDS: Multivitamins with Iron/Calcium/Folic Acid/Minerals Tab PO SCH (08:14)
[2021-02-08] MEDS: Oxybutynin 5 MG Tab PO SCH (08:15)
[2021-02-08] MEDS: atorvaSTATin 20 MG Tab PO SCH (08:16)
--- NOTE | 2021-02-08 10:16 | CR ---
CHEST: Portable 02/06/2021 at 8:51 PM CLINICAL HISTORY:Palpitations COMPARISON:None FINDINGS: The heart size, pulmonary vascularity and hilar structures are normal. No infiltrate effusion or pneumothorax is seen. IMPRESSION: No acute cardiopulmonary process.
[2021-02-08] MEDS: Amiodarone 200 MG Tab PO SCH (10:53)
[2021-02-08] MEDS: Metoprolol Succinate 25 MG Tab.ER PO SCH ×2 (10:53→21:27)
[2021-02-08] MEDS: Spironolactone 25 MG Tab PO SCH (11:00)
[2021-02-08] MEDS: Bumetanide 1 MG Tab PO SCH (11:00)
[2021-02-08] MEDS: Furosemide 20 MG Tab PO SCH (11:01)
[2021-02-08 11:27] LABS: CORONAVIRUS COVID-19 NAA NEGATIVE (NEGATIVE)
[2021-02-08] MEDS: Dextrose 5% in Water 1,000 ML IV SCH (12:00)
[2021-02-08] MEDS: Rivaroxaban 15 MG Tab PO SCH (17:02)
[2021-02-08] MEDS ORDERED: Meropenem 1 GM in Sodium Chloride 0.9% 100 ML IV SCH (18:00)
--- NOTE | 2021-02-08 19:20 | PCM.PN ---
- General Info Date of Service: 02/08/21 Admission Dx/Problem (Free Text): Admission Diagnosis/Problem Admission Diagnosis/Problem Fever of Unknown Origin Subjective Update: Ms. Stone continues to have fevers today. He does not show signs of fluid overload, her lungs are clear to auscultation, she does not have edema at the ankles, and her abdomen is not distended. She is still confused even between episodes of fever. I spoke with her son and daughter, Breanna, who stated that she has been standing on text messages to family members and even when she is more alert she is not at her baseline. They did notify me that she has a history of drug-induced lupus and she currently has rheumatoid arthritis. She does state that she has a new cough that began today. 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 Functional Status: Reports: Pain Controlled, Tolerating Diet - Review of Systems General: Reports: Fever, Chills, Appetite HEENT: Reports: Headaches. Denies: Sinus Congestion (Associated with fever), Sore Throat Pulmonary: Reports: Cough (New today). Denies: Shortness of Breath Cardiovascular: Reports: No Symptoms. Denies: Chest Pain, Palpitations, Edema Gastrointestinal: Reports: No Symptoms. Denies: Abdominal Pain, Constipation, Nausea, Vomiting Genitourinary: Reports: No Symptoms, Other (Had not urinated when seen in the morning) Musculoskeletal: Reports: No Symptoms. Denies: Neck Pain, Back Pain Skin: Reports: No Symptoms. Denies: Rash (Not observed during fever either) Neurological: Reports: Confusion, Headache (Associated with headache) Psychiatric: Reports: Confusion - Patient Data Vitals - Most Recent: Last Vital Signs Temp 101.1 F H 02/08/21 18:27 Pulse 75 02/08/21 18:00 Resp 16 02/08/21 18:00 BP 100/45 L 02/08/21 18:00 Pulse Ox 95 02/08/21 18:00 Weight - Most Recent: 144 lb I&O - Last 24 Hours: Intake & Output 02/08/21 02/08/21 02/08/21 06:59 14:59 22:59 Intake Total 2524 761 1897 Output Total 175 300 Balance 3553 [id number] [id number] Lab Results Last 24 Hours: Laboratory Results - last 24 hr 02/08/21 02/08/21 02/08/21 Range/Units 05:00 05:00 10:45 WBC 11.2 H (4.5-11.0) K/uL RBC 3.26 L (3.30-5.50) M/uL Hgb 10.7 L (12.0-15.0) g/dL Hct 33.4 L (36.0-48.0) % MCV 103 H (80-98) fL MCH 33 H (27-31) pg MCHC 32 (32-36) % Plt Count 97 L (150-400) K/uL Add Manual Diff Yes Neutrophils % (Manual) 65 (36-66) % Band Neutrophils % 18 H (5-11) % Lymphocytes % (Manual) 11 L (24-44) % Monocytes % (Manual) 4 (2-6) % Metamyelocytes % 2 % Sodium 138 L (140-148) mmol/L Potassium 4.1 (3.6-5.2) mmol/L Chloride 104 (100-108) mmol/L Carbon Dioxide 25 (21-32) mmol/L Anion Gap 13.1 (5.0-14.0) mmol/L BUN 15 (7-18) mg/dL Creatinine 1.3 H (0.6-1.0) mg/dL Est Cr Clr Drug Dosing 31.57 mL/min Estimated GFR (MDRD) 40 L (>60) Glucose 89 (74-106) mg/dL Calcium 7.2 L (8.5-10.1) mg/dL Magnesium 1.7 L (1.8-2.4) mg/dL Total Bilirubin 1.1 H (0.2-1.0) mg/dL AST 54 H (15-37) U/L ALT 47 (12-78) U/L Alkaline Phosphatase 117 H (46-116) U/L Total Protein 6.1 L (6.4-8.2) g/dL Albumin 2.3 L (3.4-5.0) g/dL Globulin 3.8 H (2.3-3.5) g/dL Albumin/Globulin Ratio 0.6 L (1.2-2.2) Influenza Type A RNA Negative (NEGATIVE) RSV RNA (INAAT) Negative (NEGATIVE) Influenza Type B RNA Negative (NEGATIVE) SARS-CoV-2 RNA (CORWIN) Negative (NEGATIVE) Seven Results Last 24 Hours: Microbiology 02/07/21 14:28 Aerobic Blood Culture - Preliminary Blood - Arm, Left NO GROWTH AFTER 1 DAY Anaerobic Blood Culture - Preliminary NO GROWTH AFTER 1 DAY 02/07/21 14:20 Aerobic Blood Culture - Preliminary Blood - Arm, Left NO GROWTH AFTER 1 DAY Anaerobic Blood Culture - Preliminary NO GROWTH AFTER 1 DAY 02/06/21 23:43 Urine Culture - Preliminary Urine, Quick Cath (In-Out) NO GROWTH AFTER 1 DAY Med Orders - Current: Current Medications Acetaminophen (Acetaminophen 325 Mg Tab) 650 mg PO Q4H PRN PRN Reason: Pain (Mild 1-3)/fever Last Admin: 02/08/21 18:27 Dose: 650 mg Documented by: Albuterol (Albuterol 0.083% 2.5 Mg/3 Ml Neb Soln) 2.5 mg NEB Q4H PRN PRN Reason: Shortness Of Breath/wheezing Albuterol/Ipratropium (Albuterol/Ipratropium 3.0-0.5 Mg/3 Ml Neb Soln) 3 ml NEB QID PRN PRN Reason: Shortness Of Breath/wheezing Amiodarone HCl (Amiodarone 200 Mg Tab) 200 mg PO DAILY [facility] Last Admin: 02/08/21 10:53 Dose: 200 mg Documented by: Aspirin (Aspirin 81 Mg Tab.Ec) 81 mg PO DAILY [facility] Last Admin: 02/08/21 08:14 Dose: 81 mg Documented by: Atorvastatin Calcium (Atorvastatin 20 Mg Tab) 20 mg PO DAILY [facility] Last Admin: 02/08/21 08:16 Dose: 20 mg Documented by: Bisacodyl (Bisacodyl 5 Mg Tab) 5 mg PO DAILY PRN PRN Reason: Constipation Bumetanide (Bumetanide 1 Mg Tab) 0.5 mg PO DAILY [facility] Last Admin: 02/08/21 11:00 Dose: Not Given Documented by: Calcium Carbonate (Calcium Carbonate/Vitamin D3 1500 Mg-400 Units Tab) 1 tab PO DAILY [facility] Last Admin: 02/08/21 08:13 Dose: 1 tab Documented by: Clopidogrel Bisulfate (Clopidogrel 75 Mg Tab) 75 mg PO DAILY [facility] Last Admin: 02/08/21 08:14 Dose: 75 mg Documented by: Cyanocobalamin (Cyanocobalamin (Vitamin B12) 1,000 Mcg Tab) 1,000 mcg PO DAILY [facility] Last Admin: 02/08/21 08:13 Dose: 1,000 mcg Documented by: Diphenhydramine HCl (Diphenhydramine 25 Mg Cap) 25 mg PO Q6H PRN PRN Reason: Itching Last Admin: 02/07/21 21:23 Dose: 25 mg Documented by: Docusate Sodium (Docusate Sodium 100 Mg Cap) 100 mg PO BID PRN PRN Reason: Constipation Famotidine (Famotidine 20 Mg Tab) 20 mg PO BID [facility] Last Admin: 02/08/21 08:13 Dose: 20 mg Documented by: Furosemide (Furosemide 20 Mg Tab) 20 mg PO DAILY [facility] Last Admin: 02/08/21 11:01 Dose: Not Given Documented by: Gabapentin (Gabapentin 300 Mg Cap) 600 mg PO BID [facility] Last Admin: 02/08/21 08:14 Dose: 600 mg Documented by: Vancomycin HCl 1 gm/ Sodium (Chloride) 250 mls @ 165 mls/hr IV Q24H [facility] Last Admin: 02/08/21 15:13 Dose: 165 mls/hr Documented by: Meropenem 1 gm/ Sodium (Chloride) 100 mls @ 200 mls/hr IV Q12H [facility] Last Admin: 02/08/21 17:02 Dose: 200 mls/hr Documented by: Dextrose/Water (Dextrose 5% In Water) 1,000 mls @ 50 mls/hr IV ASDIRECTED [facility] Last Admin: 02/08/21 12:00 Dose: 50 mls/hr Documented by: Sodium Chloride (Normal Saline) 1,000 mls @ 100 mls/hr IV ASDIRECTED [facility] Last Admin: 02/08/21 18:45 Dose: 100 mls/hr Documented by: Levothyroxine Sodium (Levothyroxine 112 Mcg Tab) 112 mcg PO ACBREAKFAST [facility] Last Admin: 02/08/21 08:14 Dose: 112 mcg Documented by: Loperamide HCl (Loperamide 2 Mg Cap) 2 mg PO DAILY [facility] Last Admin: 02/08/21 08:14 Dose: 2 mg Documented by: Metoprolol Succinate (Metoprolol Succinate 25 Mg Tab.Er) 12.5 mg PO BID [facility] Last Admin: 02/08/21 10:53 Dose: 12.5 mg Documented by: Morphine Sulfate (Morphine 2 Mg/Ml Syringe) 2 mg IVPUSH Q2H PRN PRN Reason: Pain (severe 7-10) Last Admin: 02/07/21 02:40 Dose: 2 mg Documented by: Multivitamins/Minerals (Multivitamins With Iron/Calcium/Folic Acid/Minerals Tab) 1 tab PO DAILY [facility] Last Admin: 02/08/21 08:14 Dose: 1 tab Documented by: Ondansetron HCl (Ondansetron 4 Mg Tab.Dis) 4 mg PO Q6H PRN PRN Reason: Nausea able to take PO Ondansetron HCl (Ondansetron 4 Mg/2 Ml Sdv) 4 mg IV Q4H PRN PRN Reason: Nausea/Vomiting Last Admin: 02/07/21 02:40 Dose: 4 mg Documented by: Oxybutynin Chloride (Oxybutynin 5 Mg Tab) 5 mg PO DAILY [facility] Last Admin: 02/08/21 08:15 Dose: 5 mg Documented by: Oxycodone HCl (Oxycodone 5 Mg Tab) 5 mg PO Q4H PRN PRN Reason: Pain (moderate 4-6) Last Admin: 02/07/21 19:45 Dose: 5 mg Documented by: Rivaroxaban (Rivaroxaban 15 Mg Tab) 15 mg PO QPM [facility] Last Admin: 02/08/21 17:02 Dose: 15 mg Documented by: Sodium Chloride (Sodium Chloride 0.9% 10 Ml Syringe) 10 ml FLUSH ASDIRECTED PRN PRN Reason: Keep Vein Open Last Admin: 02/06/21 21:01 Dose: 10 ml Documented by: Spironolactone (Spironolactone 25 Mg Tab) 12.5 mg PO DAILY [facility] Last Admin: 02/08/21 11:00 Dose: Not Given Documented by: Zolpidem Tartrate (Zolpidem 5 Mg Tab) 5 mg PO BEDTIME PRN PRN Reason: Sleep Last Admin: 02/07/21 01:18 Dose: 5 mg Documented by: Discontinued Medications Bumetanide (Bumetanide 1 Mg Tab) 0.5 mg PO DAILY [facility] Sodium Chloride (Normal Saline) 1,000 mls @ 500 mls/hr IV ASDIRECTED [facility] Last Admin: 02/06/21 21:01 Dose: 500 mls/hr Documented by: Ceftriaxone Sodium 1 gm/ (Sodium Chloride) 50 mls @ 100 mls/hr IV ONETIME ONE Stop: 02/06/21 22:44 Last Admin: 02/06/21 22:27 Dose: 100 mls/hr Documented by: Ceftriaxone Sodium 1 gm/ (Sodium Chloride) 50 mls @ 100 mls/hr IV Q24H [facility] Sodium Chloride (Normal Saline) 1,000 mls @ 75 mls/hr IV ASDIRECTED [facility] Last Admin: 02/07/21 05:57 Dose: 75 mls/hr Documented by: Sodium Chloride (Normal Saline) 1,000 mls @ 50 mls/hr IV ASDIRECTED [facility] Meropenem 1 gm/ Sodium (Chloride) 100 mls @ 200 mls/hr IV Q8H [facility] Last Admin: 02/08/21 05:47 Dose: 200 mls/hr Documented by: Sodium Chloride (Normal Saline) 500 mls @ 250 mls/hr IV .BOLUS ONE Stop: 02/07/21 15:49 Last Admin: 02/07/21 14:48 Dose: Not Given Documented by: Sodium Chloride (Normal Saline) 1,000 mls @ 500 mls/hr IV .BOLUS ONE Stop: 02/07/21 16:25 Last Admin: 02/07/21 14:47 Dose: 500 mls/hr Documented by: Sodium Chloride (Normal Saline) 70 mls @ 3 mls/sec IV ASDIRECTED [facility] Stop: 02/07/21 18:00 Last Admin: 02/07/21 15:28 Dose: 3 mls/sec Documented by: Sodium Chloride (Normal Saline) 1,000 mls @ 125 mls/hr IV ASDIRECTED [facility] Last Admin: 02/08/21 10:27 Dose: 125 mls/hr Documented by: Iopamidol (Iopamidol 612 Mg/Ml 100 Ml Bottle) 96 ml IV . DIRECTED [facility] Stop: 02/07/21 18:00 Last Admin: 02/07/21 15:29 Dose: 96 ml Documented by: Levothyroxine Sodium (Levothyroxine 100 Mcg Tab) 100 mcg PO ACBREAKFAST [facility] Metoprolol Tartrate (Metoprolol Tartrate 25 Mg Tab) 12.5 mg PO BID [facility] Last Admin: 02/07/21 01:15 Dose: 12.5 mg Documented by: Pantoprazole Sodium (Pantoprazole 40 Mg Vial) 40 mg IV DAILY [facility] Last Admin: 02/07/21 11:39 Dose: 40 mg Documented by: Sodium Chloride (Sodium Chloride 0.9% 10 Ml Syringe) 10 ml FLUSH ONETIME ONE Stop: 02/07/21 14:51 Last Admin: 02/07/21 15:28 Dose: 10 ml Documented by: Tamoxifen Citrate (Tamoxifen 10 Mg Tab) 20 mg PO DAILY [facility] Vancomycin HCl (Vancomycin 1 Gm Sdv) 1 gm IV .PHARMACY TO DOSE HERI Stop: 02/07/21 16:00 Zolpidem Tartrate (Zolpidem 5 Mg Tab) 10 mg PO BEDTIME PRN PRN Reason: Sleep - Exam General: Alert, Cooperative, No Acute Distress HEENT: Pupils Equal, EOMI, Mucous Membr. Moist/[place] Neck: Other (No pain associated with neck movement) Lungs: Clear to Auscultation, Normal Respiratory Effort Cardiovascular: Regular Rate, Regular Rhythm GI/Abdominal Exam: Normal Bowel Sounds, Soft, Non-Tender, No Distention Back Exam: Normal Inspection Extremities: Normal Inspection, Non-Tender, No Pedal Edema Skin: Warm, Dry, Intact. No: Rash Neurological: No New Focal Deficit Psy/Mental Status: Alert, Normal Affect, Normal Mood - Patient Data Lab Results Last 24 hrs: Laboratory Results - last 24 hr 02/08/21 02/08/21 02/08/21 Range/Units 05:00 05:00 10:45 WBC 11.2 H (4.5-11.0) K/uL RBC 3.26 L (3.30-5.50) M/uL Hgb 10.7 L (12.0-15.0) g/dL Hct 33.4 L (36.0-48.0) % MCV 103 H (80-98) fL MCH 33 H (27-31) pg MCHC 32 (32-36) % Plt Count 97 L (150-400) K/uL Add Manual Diff Yes Neutrophils % (Manual) 65 (36-66) % Band Neutrophils % 18 H (5-11) % Lymphocytes % (Manual) 11 L (24-44) % Monocytes % (Manual) 4 (2-6) % Metamyelocytes % 2 % Sodium 138 L (140-148) mmol/L Potassium 4.1 (3.6-5.2) mmol/L Chloride 104 (100-108) mmol/L Carbon Dioxide 25 (21-32) mmol/L Anion Gap 13.1 (5.0-14.0) mmol/L BUN 15 (7-18) mg/dL Creatinine 1.3 H (0.6-1.0) mg/dL Est Cr Clr Drug Dosing 31.57 mL/min Estimated GFR (MDRD) 40 L (>60) Glucose 89 (74-106) mg/dL Calcium 7.2 L (8.5-10.1) mg/dL Magnesium 1.7 L (1.8-2.4) mg/dL Total Bilirubin 1.1 H (0.2-1.0) mg/dL AST 54 H (15-37) U/L ALT 47 (12-78) U/L Alkaline Phosphatase 117 H (46-116) U/L Total Protein 6.1 L (6.4-8.2) g/dL Albumin 2.3 L (3.4-5.0) g/dL Globulin 3.8 H (2.3-3.5) g/dL Albumin/Globulin Ratio 0.6 L (1.2-2.2) Influenza Type A RNA Negative (NEGATIVE) RSV RNA (INAAT) Negative (NEGATIVE) Influenza Type B RNA Negative (NEGATIVE) SARS-CoV-2 RNA ([facility]) Negative (NEGATIVE) Result Diagrams: 02/08/21 05:00 02/08/21 05:00 Seven Results Last 24 hrs: Microbiology 02/07/21 14:28 Aerobic Blood Culture - Preliminary Blood - Arm, Left NO GROWTH AFTER 1 DAY Anaerobic Blood Culture - Preliminary NO GROWTH AFTER 1 DAY 02/07/21 14:20 Aerobic Blood Culture - Preliminary Blood - Arm, Left NO GROWTH AFTER 1 DAY Anaerobic Blood Culture - Preliminary NO GROWTH AFTER 1 DAY 02/06/21 23:43 Urine Culture - Preliminary Urine, Quick Cath (In-Out) NO GROWTH AFTER 1 DAY Sepsis Event Note - Evaluation Sepsis Screening Result: No Definite Risk - Focused Exam Vital Signs: Vital Signs Temp Temp Pulse Pulse Resp BP BP 02/08/21 18:27 101.1 F H 02/08/21 18:00 101.1 F H 75 16 100/45 L 02/08/21 16:00 100.9 F H 76 14 91/38 L 02/08/21 14:10 101.8 F H 02/08/21 14:00 101.8 F H 79 15 107/47 L 02/08/21 12:00 100.6 F 78 14 93/42 L 02/08/21 10:53 89 93/73 02/08/21 10:00 101.3 F H 91 17 93/73 02/08/21 09:55 100.3 F 02/08/21 08:00 100.3 F 72 16 97/40 L Pulse Ox 02/08/21 18:27 02/08/21 18:00 95 02/08/21 16:00 93 L 02/08/21 14:10 02/08/21 14:00 96 02/08/21 12:00 95 02/08/21 10:53 02/08/21 10:00 95 02/08/21 09:55 02/08/21 08:00 95 - Problem List & Annotations (1) Fever of unknown origin (FUO) Status: Acute Current Visit: Yes - Problem List Review Problem List Initiated/Reviewed/Updated: Yes - My Orders Last 24 Hours: My Active Orders 02/08/21 11:45 Dextrose 5% in Water 1,000 ml IV ASDIRECTED Sodium Chloride 0.9% [Normal Saline] 1,000 ml IV ASDIRECTED 02/08/21 18:00 Meropenem [Merrem] 1 gm Sodium Chloride 0.9% [Normal Saline] 100 ml IV Q12H 02/09/21 07:00 BASIC METABOLIC PANEL,BMP [CHEM] Routine CBC W/O DIFF,HEMOGRAM [HEME] Routine CRP [C-REACTIVE PROTEIN] [CHEM] Routine ESR [SEDIMENTATION RATE MANUAL] [HEME] Routine HEAVY METALS PROFILE I, BLOOD Routine LACTATE DEHYDROGENASE,LDH [CHEM] Routine RHEUMATOID ARTHRITIS FACTOR Routine - Plan Plan:: ASSESSMENT AND PLAN Fever of unknown origin -reports has been sick since or Monday. Has not eating or taken her medications for two days. On she was working downstairs and came up to main level- had shortness of breath, felt really cold and had shaking chills without fever. nauseated. Monday and Monday stay in bed all day and shakes continues call the [facility] to take her to the hospital. The [facility] report found Mrs. Stone outside confused and wandering around. Was noted to have a urticaria this morning as well as fever. -Repeat chest x-ray and urinalysis showed no evidence of infection. CT of abdomen and right upper quadrant ultrasound are negative for signs of infection. She has reported symptoms of abdominal discomfort and nausea, the symptoms are no longer present -Hold on further antibiotic therapy as likelihood of infection is very low -She did have a cough today so a 4 panel respiratory virus swab was done including Covid, flu A/B, and RSV which were all negative. 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 Arrington is Provider for this, seen as Outpatient Clinic Hypothyroidism- TSH 12.43 in ER -restart Synthroid 100 mcg po daily Maintenance issues - - DVT prophylaxis - Xarelto 15 mg daily - GI prophylaxis -not indicated - Nutrition - regular diet - White catheter - not indicated CODE STATUS - FULL CODE- will let her Sons decide if she needs to be kept on life support. Disposition: I did speak with the family and did receive good information from them as possible other reasons for her fever and confusion including heavy metal toxicity and inflammatory disorders. We will check labs for this. I did talk with them about possibly transferring her if we are unable to find a cause to the [facility] [place] as [facility] have rheumatology. I will speak with them tomorrow pending the outcome of the labs ordered overnight. Shirley Gibson, DO
[2021-02-08] MEDS: Acetaminophen 500 MG Tab PO PRN (22:18)
[2021-02-09] MEDS: Acetaminophen 500 MG Tab PO PRN ×3 (04:28→17:59)
[2021-02-09] MEDS: Sodium Chloride 0.9% 1,000 ML IV SCH ×2 (05:56→15:35)
[2021-02-09] MEDS: Levothyroxine 112 MCG Tab PO SCH (07:55)
[2021-02-09] MEDS: Calcium Carbonate/Vitamin D3 1500 MG-400 Units Tab PO SCH (08:03)
[2021-02-09] MEDS: atorvaSTATin 20 MG Tab PO SCH (08:03)
[2021-02-09] MEDS: Cyanocobalamin (Vitamin B12) 1,000 MCG Tab PO SCH (08:04)
[2021-02-09] MEDS: Multivitamins with Iron/Calcium/Folic Acid/Minerals Tab PO SCH (08:04)
[2021-02-09] MEDS: Metoprolol Succinate 25 MG Tab.ER PO SCH (08:05)
[2021-02-09] MEDS: Clopidogrel 75 MG Tab PO SCH (08:05)
[2021-02-09] MEDS: Aspirin 81 MG Tab.EC PO SCH (08:06)
[2021-02-09] MEDS: Famotidine 20 MG Tab PO SCH (08:07)
[2021-02-09] MEDS: Oxybutynin 5 MG Tab PO SCH (08:07)
[2021-02-09] MEDS: Amiodarone 200 MG Tab PO SCH (08:08)
[2021-02-09] MEDS: Gabapentin 300 MG Cap PO SCH (08:09)
[2021-02-09] MEDS: Ondansetron 4 MG/2 ML SDV IV PRN (11:06)
[2021-02-09] MEDS: Dextrose 5% in Water 1,000 ML IV SCH (11:11)
[2021-02-09] MEDS ORDERED: Norepinephrine 4 MG in Dextrose 5% in Water 246 ML IV SCH ×2 (13:45)
--- NOTE | 2021-02-09 15:20 | PCM.PN ---
- General Info Date of Service: 02/09/21 Admission Dx/Problem (Free Text): Admission Diagnosis/Problem Admission Diagnosis/Problem Fever of Unknown Origin - Patient Data Vitals - Most Recent: Last Vital Signs Temp 100.2 F 02/09/21 12:00 Pulse 79 02/09/21 13:13 Resp 20 02/09/21 13:13 BP 77/42 L 02/09/21 13:13 Pulse Ox 96 02/09/21 13:13 Weight - Most Recent: 144 lb I&O - Last 24 Hours: Intake & Output 02/09/21 02/09/21 02/09/21 06:59 14:59 22:59 Intake Total 2137 Output Total 50 200 Balance 2087 -200 Lab Results Last 24 Hours: Laboratory Results - last 24 hr 02/09/21 02/09/21 02/09/21 Range/Units 04:30 04:30 08:50 WBC 9.6 (4.5-11.0) K/uL RBC 2.85 L (3.30-5.50) M/uL Hgb 9.6 L (12.0-15.0) g/dL Hct 29.7 L (36.0-48.0) % MCV 104 H (80-98) fL MCH 34 H (27-31) pg MCHC 32 (32-36) % Plt Count 94 L (150-400) K/uL ESR 97 H (0-25) mm/hr Percent Retic (0.5-1.5) % Sodium 134 L (140-148) mmol/L Potassium 3.9 (3.6-5.2) mmol/L Chloride 103 (100-108) mmol/L Carbon Dioxide 20 L (21-32) mmol/L Anion Gap 14.9 H (5.0-14.0) mmol/L BUN 17 (7-18) mg/dL Creatinine 1.2 H (0.6-1.0) mg/dL Est Cr Clr Drug Dosing 34.21 mL/min Estimated GFR (MDRD) 43 L (>60) Glucose 115 H (74-106) mg/dL Calcium 7.0 L (8.5-10.1) mg/dL Total Bilirubin 1.8 H D (0.2-1.0) mg/dL Direct Bilirubin 1.31 H (0.0-0.2) mg/dL AST 159 H D (15-37) U/L ALT 84 H (12-78) U/L Alkaline Phosphatase (46-116) U/L Lactate Dehydrogenase 416 H (82-234) U/L C-Reactive Protein 21.50 H (0.0-0.3) mg/dL Triglycerides (15-150) mg/dL Cholesterol (0-200) mg/dL LDL Cholesterol Direct (0-100) mg/dL HDL Cholesterol (40-60) mg/dL 02/09/21 02/09/21 02/09/21 Range/Units 08:50 08:50 08:50 WBC (4.5-11.0) K/uL RBC (3.30-5.50) M/uL Hgb (12.0-15.0) g/dL Hct (36.0-48.0) % MCV (80-98) fL MCH (27-31) pg MCHC (32-36) % Plt Count (150-400) K/uL ESR (0-25) mm/hr Percent Retic 0.8 (0.5-1.5) % Sodium (140-148) mmol/L Potassium (3.6-5.2) mmol/L Chloride (100-108) mmol/L Carbon Dioxide (21-32) mmol/L Anion Gap (5.0-14.0) mmol/L BUN (7-18) mg/dL Creatinine (0.6-1.0) mg/dL Est Cr Clr Drug Dosing mL/min Estimated GFR (MDRD) (>60) Glucose (74-106) mg/dL Calcium (8.5-10.1) mg/dL Total Bilirubin (0.2-1.0) mg/dL Direct Bilirubin (0.0-0.2) mg/dL AST (15-37) U/L ALT (12-78) U/L Alkaline Phosphatase 199 H (46-116) U/L Lactate Dehydrogenase (82-234) U/L C-Reactive Protein (0.0-0.3) mg/dL Triglycerides 117 (15-150) mg/dL Cholesterol 80 (0-200) mg/dL LDL Cholesterol Direct 41 (0-100) mg/dL HDL Cholesterol 15 L (40-60) mg/dL Seven Results Last 24 Hours: Microbiology 02/07/21 14:28 Aerobic Blood Culture - Preliminary Blood - Arm, Left NO GROWTH AFTER 2 DAYS Anaerobic Blood Culture - Preliminary NO GROWTH AFTER 2 DAYS 02/07/21 14:20 Aerobic Blood Culture - Preliminary Blood - Arm, Left NO GROWTH AFTER 2 DAYS Anaerobic Blood Culture - Preliminary NO GROWTH AFTER 2 DAYS 02/06/21 23:43 Urine Culture - Final Urine, Quick Cath (In-Out) NO GROWTH AFTER 2 DAYS Med Orders - Current: Current Medications Acetaminophen (Acetaminophen 500 Mg Tab) 1,000 mg PO Q6H PRN PRN Reason: Fever Last Admin: 02/09/21 10:39 Dose: 1,000 mg Documented by: Albuterol (Albuterol 0.083% 2.5 Mg/3 Ml Neb Soln) 2.5 mg NEB Q4H PRN PRN Reason: Shortness Of Breath/wheezing Albuterol/Ipratropium (Albuterol/Ipratropium 3.0-0.5 Mg/3 Ml Neb Soln) 3 ml NEB QID PRN PRN Reason: Shortness Of Breath/wheezing Amiodarone HCl (Amiodarone 200 Mg Tab) 200 mg PO DAILY [facility] Last Admin: 02/09/21 08:08 Dose: 200 mg Documented by: Aspirin (Aspirin 81 Mg Tab.Ec) 81 mg PO DAILY [facility] Last Admin: 02/09/21 08:06 Dose: 81 mg Documented by: Atorvastatin Calcium (Atorvastatin 20 Mg Tab) 20 mg PO DAILY [facility] Last Admin: 02/09/21 08:03 Dose: 20 mg Documented by: Bisacodyl (Bisacodyl 5 Mg Tab) 5 mg PO DAILY PRN PRN Reason: Constipation Bumetanide (Bumetanide 1 Mg Tab) 0.5 mg PO DAILY [facility] Last Admin: 02/08/21 11:00 Dose: Not Given Documented by: Calcium Carbonate (Calcium Carbonate/Vitamin D3 1500 Mg-400 Units Tab) 1 tab PO DAILY [facility] Last Admin: 02/09/21 08:03 Dose: 1 tab Documented by: Clopidogrel Bisulfate (Clopidogrel 75 Mg Tab) 75 mg PO DAILY [facility] Last Admin: 02/09/21 08:05 Dose: 75 mg Documented by: Cyanocobalamin (Cyanocobalamin (Vitamin B12) 1,000 Mcg Tab) 1,000 mcg PO DAILY [facility] Last Admin: 02/09/21 08:04 Dose: 1,000 mcg Documented by: Diphenhydramine HCl (Diphenhydramine 25 Mg Cap) 25 mg PO Q6H PRN PRN Reason: Itching Last Admin: 02/07/21 21:23 Dose: 25 mg Documented by: Docusate Sodium (Docusate Sodium 100 Mg Cap) 100 mg PO BID PRN PRN Reason: Constipation Famotidine (Famotidine 20 Mg Tab) 20 mg PO BID [facility] Last Admin: 02/09/21 08:07 Dose: 20 mg Documented by: Furosemide (Furosemide 20 Mg Tab) 20 mg PO DAILY [facility] Last Admin: 02/08/21 11:01 Dose: Not Given Documented by: Gabapentin (Gabapentin 300 Mg Cap) 600 mg PO BID [facility] Last Admin: 02/09/21 08:09 Dose: 600 mg Documented by: Dextrose/Water (Dextrose 5% In Water) 1,000 mls @ 50 mls/hr IV ASDIRECTED [facility] Last Admin: 02/09/21 11:11 Dose: 50 mls/hr Documented by: Sodium Chloride (Normal Saline) 1,000 mls @ 100 mls/hr IV ASDIRECTED [facility] Last Admin: 02/09/21 05:56 Dose: 100 mls/hr Documented by: Norepinephrine Bitartrate 4 mg (/ Dextrose/Water) 250 mls @ 7.5 mls/hr IV TITRATE [facility]; Protocol Last Titration: 02/09/21 15:04 Dose: 4 mcg/min, 15 mls/hr Documented by: Meropenem 1 gm/ Sodium (Chloride) 100 mls @ 200 mls/hr IV Q8H [facility] Levothyroxine Sodium (Levothyroxine 112 Mcg Tab) 112 mcg PO ACBREAKFAST [facility] Last Admin: 02/09/21 07:55 Dose: 112 mcg Documented by: Metoprolol Succinate (Metoprolol Succinate 25 Mg Tab.Er) 12.5 mg PO BID [facility] Last Admin: 02/09/21 08:05 Dose: 12.5 mg Documented by: Multivitamins/Minerals (Multivitamins With Iron/Calcium/Folic Acid/Minerals Tab) 1 tab PO DAILY [facility] Last Admin: 02/09/21 08:04 Dose: 1 tab Documented by: Ondansetron HCl (Ondansetron 4 Mg Tab.Dis) 4 mg PO Q6H PRN PRN Reason: Nausea able to take PO Ondansetron HCl (Ondansetron 4 Mg/2 Ml Sdv) 4 mg IV Q4H PRN PRN Reason: Nausea/Vomiting Last Admin: 02/09/21 11:06 Dose: 4 mg Documented by: Oxybutynin Chloride (Oxybutynin 5 Mg Tab) 5 mg PO DAILY [facility] Last Admin: 02/09/21 08:07 Dose: 5 mg Documented by: Rivaroxaban (Rivaroxaban 15 Mg Tab) 15 mg PO QPM [facility] Last Admin: 02/08/21 17:02 Dose: 15 mg Documented by: Sodium Chloride (Sodium Chloride 0.9% 10 Ml Syringe) 10 ml FLUSH ASDIRECTED PRN PRN Reason: Keep Vein Open Last Admin: 02/06/21 21:01 Dose: 10 ml Documented by: Spironolactone (Spironolactone 25 Mg Tab) 12.5 mg PO DAILY [facility] Last Admin: 02/08/21 11:00 Dose: Not Given Documented by: Vancomycin HCl (Vancomycin 1 Gm Sdv) 0 gm IV .PHARMACY TO DOSE [facility] Discontinued Medications Acetaminophen (Acetaminophen 325 Mg Tab) 650 mg PO Q4H PRN PRN Reason: Pain (Mild 1-3)/fever Last Admin: 02/08/21 18:27 Dose: 650 mg Documented by: Bumetanide (Bumetanide 1 Mg Tab) 0.5 mg PO DAILY [facility] Sodium Chloride (Normal Saline) 1,000 mls @ 500 mls/hr IV ASDIRECTED [facility] Last Admin: 02/06/21 21:01 Dose: 500 mls/hr Documented by: Ceftriaxone Sodium 1 gm/ (Sodium Chloride) 50 mls @ 100 mls/hr IV ONETIME ONE Stop: 02/06/21 22:44 Last Admin: 02/06/21 22:27 Dose: 100 mls/hr Documented by: Ceftriaxone Sodium 1 gm/ (Sodium Chloride) 50 mls @ 100 mls/hr IV Q24H [facility] Sodium Chloride (Normal Saline) 1,000 mls @ 75 mls/hr IV ASDIRECTED [facility] Last Admin: 02/07/21 05:57 Dose: 75 mls/hr Documented by: Sodium Chloride (Normal Saline) 1,000 mls @ 50 mls/hr IV ASDIRECTED [facility] Meropenem 1 gm/ Sodium (Chloride) 100 mls @ 200 mls/hr IV Q8H [facility] Last Admin: 02/08/21 05:47 Dose: 200 mls/hr Documented by: Sodium Chloride (Normal Saline) 500 mls @ 250 mls/hr IV .BOLUS ONE Stop: 02/07/21 15:49 Last Admin: 02/07/21 14:48 Dose: Not Given Documented by: Vancomycin HCl 1 gm/ Sodium (Chloride) 250 mls @ 165 mls/hr IV Q24H [facility] Last Admin: 02/08/21 15:13 Dose: 165 mls/hr Documented by: Sodium Chloride (Normal Saline) 1,000 mls @ 500 mls/hr IV .BOLUS ONE Stop: 02/07/21 16:25 Last Admin: 02/07/21 14:47 Dose: 500 mls/hr Documented by: Sodium Chloride (Normal Saline) 70 mls @ 3 mls/sec IV ASDIRECTED [facility] Stop: 02/07/21 18:00 Last Admin: 02/07/21 15:28 Dose: 3 mls/sec Documented by: Sodium Chloride (Normal Saline) 1,000 mls @ 125 mls/hr IV ASDIRECTED [facility] Last Admin: 02/08/21 10:27 Dose: 125 mls/hr Documented by: Meropenem 1 gm/ Sodium (Chloride) 100 mls @ 200 mls/hr IV Q12H [facility] Last Admin: 02/08/21 17:02 Dose: 200 mls/hr Documented by: Iopamidol (Iopamidol 612 Mg/Ml 100 Ml Bottle) 96 ml IV . DIRECTED [facility] Stop: 02/07/21 18:00 Last Admin: 02/07/21 15:29 Dose: 96 ml Documented by: Levothyroxine Sodium (Levothyroxine 100 Mcg Tab) 100 mcg PO ACBREAKFAST [facility] Loperamide HCl (Loperamide 2 Mg Cap) 2 mg PO DAILY [facility] Last Admin: 02/08/21 08:14 Dose: 2 mg Documented by: Metoprolol Tartrate (Metoprolol Tartrate 25 Mg Tab) 12.5 mg PO BID [facility] Last Admin: 02/07/21 01:15 Dose: 12.5 mg Documented by: Morphine Sulfate (Morphine 2 Mg/Ml Syringe) 2 mg IVPUSH Q2H PRN PRN Reason: Pain (severe 7-10) Last Admin: 02/07/21 02:40 Dose: 2 mg Documented by: Oxycodone HCl (Oxycodone 5 Mg Tab) 5 mg PO Q4H PRN PRN Reason: Pain (moderate 4-6) Last Admin: 02/07/21 19:45 Dose: 5 mg Documented by: Pantoprazole Sodium (Pantoprazole 40 Mg Vial) 40 mg IV DAILY [facility] Last Admin: 02/07/21 11:39 Dose: 40 mg Documented by: Sodium Chloride (Sodium Chloride 0.9% 10 Ml Syringe) 10 ml FLUSH ONETIME ONE Stop: 02/07/21 14:51 Last Admin: 02/07/21 15:28 Dose: 10 ml Documented by: Tamoxifen Citrate (Tamoxifen 10 Mg Tab) 20 mg PO DAILY [facility] Vancomycin HCl (Vancomycin 1 Gm Sdv) 1 gm IV .PHARMACY TO DOSE [facility] Stop: 02/07/21 16:00 Zolpidem Tartrate (Zolpidem 5 Mg Tab) 10 mg PO BEDTIME PRN PRN Reason: Sleep Zolpidem Tartrate (Zolpidem 5 Mg Tab) 5 mg PO BEDTIME PRN PRN Reason: Sleep Last Admin: 02/07/21 01:18 Dose: 5 mg Documented by: - Patient Data Lab Results Last 24 hrs: Laboratory Results - last 24 hr 02/09/21 02/09/21 02/09/21 Range/Units 04:30 04:30 08:50 WBC 9.6 (4.5-11.0) K/uL RBC 2.85 L (3.30-5.50) M/uL Hgb 9.6 L (12.0-15.0) g/dL Hct 29.7 L (36.0-48.0) % MCV 104 H (80-98) fL MCH 34 H (27-31) pg MCHC 32 (32-36) % Plt Count 94 L (150-400) K/uL ESR 97 H (0-25) mm/hr Percent Retic (0.5-1.5) % Sodium 134 L (140-148) mmol/L Potassium 3.9 (3.6-5.2) mmol/L Chloride 103 (100-108) mmol/L Carbon Dioxide 20 L (21-32) mmol/L Anion Gap 14.9 H (5.0-14.0) mmol/L BUN 17 (7-18) mg/dL Creatinine 1.2 H (0.6-1.0) mg/dL Est Cr Clr Drug Dosing 34.21 mL/min Estimated GFR (MDRD) 43 L (>60) Glucose 115 H (74-106) mg/dL Calcium 7.0 L (8.5-10.1) mg/dL Total Bilirubin 1.8 H D (0.2-1.0) mg/dL Direct Bilirubin 1.31 H (0.0-0.2) mg/dL AST 159 H D (15-37) U/L ALT 84 H (12-78) U/L Alkaline Phosphatase (46-116) U/L Lactate Dehydrogenase 416 H (82-234) U/L C-Reactive Protein 21.50 H (0.0-0.3) mg/dL Triglycerides (15-150) mg/dL Cholesterol (0-200) mg/dL LDL Cholesterol Direct (0-100) mg/dL HDL Cholesterol (40-60) mg/dL 02/09/21 02/09/21 02/09/21 Range/Units 08:50 08:50 08:50 WBC (4.5-11.0) K/uL RBC (3.30-5.50) M/uL Hgb (12.0-15.0) g/dL Hct (36.0-48.0) % MCV (80-98) fL MCH (27-31) pg MCHC (32-36) % Plt Count (150-400) K/uL ESR (0-25) mm/hr Percent Retic 0.8 (0.5-1.5) % Sodium (140-148) mmol/L Potassium (3.6-5.2) mmol/L Chloride (100-108) mmol/L Carbon Dioxide (21-32) mmol/L Anion Gap (5.0-14.0) mmol/L BUN (7-18) mg/dL Creatinine (0.6-1.0) mg/dL Est Cr Clr Drug Dosing mL/min Estimated GFR (MDRD) (>60) Glucose (74-106) mg/dL Calcium (8.5-10.1) mg/dL Total Bilirubin (0.2-1.0) mg/dL Direct Bilirubin (0.0-0.2) mg/dL AST (15-37) U/L ALT (12-78) U/L Alkaline Phosphatase 199 H (46-116) U/L Lactate Dehydrogenase (82-234) U/L C-Reactive Protein (0.0-0.3) mg/dL Triglycerides 117 (15-150) mg/dL Cholesterol 80 (0-200) mg/dL LDL Cholesterol Direct 41 (0-100) mg/dL HDL Cholesterol 15 L (40-60) mg/dL Result Diagrams: 02/09/21 04:30 02/09/21 04:30 Seven Results Last 24 hrs: Microbiology 02/07/21 14:28 Aerobic Blood Culture - Preliminary Blood - Arm, Left NO GROWTH AFTER 2 DAYS Anaerobic Blood Culture - Preliminary NO GROWTH AFTER 2 DAYS 02/07/21 14:20 Aerobic Blood Culture - Preliminary Blood - Arm, Left NO GROWTH AFTER 2 DAYS Anaerobic Blood Culture - Preliminary NO GROWTH AFTER 2 DAYS 02/06/21 23:43 Urine Culture - Final Urine, Quick Cath (In-Out) NO GROWTH AFTER 2 DAYS Sepsis Event Note - Evaluation Sepsis Screening Result: No Definite Risk - Focused Exam Vital Signs: Vital Signs Temp Temp Pulse Pulse Resp BP BP 02/09/21 13:13 79 20 77/42 L 02/09/21 12:00 100.2 F 76 18 101/39 L 02/09/21 10:20 100.2 F 82 20 133/94 H 02/09/21 08:05 75 113/55 L 02/09/21 08:00 99.7 F 78 16 113/55 L 02/09/21 06:00 101 F H 16 93/45 L 02/09/21 04:00 100.7 F H 18 99/31 L Pulse Ox 02/09/21 13:13 96 02/09/21 12:00 96 02/09/21 10:20 93 L 02/09/21 08:05 02/09/21 08:00 97 02/09/21 06:00 93 L 02/09/21 04:00 93 L - Problem List & Annotations (1) Fever of unknown origin (FUO) Status: Acute Current Visit: Yes - My Orders Last 24 Hours: My Active Orders 02/08/21 20:10 Acetaminophen [Tylenol Extra Strength] 1,000 mg PO Q6H PRN 02/09/21 04:30 HEAVY METALS PROFILE I, BLOOD Routine RHEUMATOID ARTHRITIS FACTOR Routine 02/09/21 08:50 HAPTOGLOBIN Routine 02/09/21 13:45 Norepinephrine [Levophed] 4 mg Dextrose 5% in Water 246 ml IV TITRATE 02/09/21 14:53 LACTIC ACID [CHEM] Routine 02/09/21 15:08 ALBUMIN [CHEM] Urgent 02/09/21 15:15 Meropenem [Merrem] 1 gm Sodium Chloride 0.9% [Normal Saline] 100 ml IV Q8H 02/09/21 16:00 Vancomycin See Dose Instructions IV .PHARMACY TO DOSE - Plan Plan:: ASSESSMENT AND PLAN Fever of unknown origin -reports has been sick since or Monday. Has not eating or taken her medications for two days. On she was working downstairs and came up to main level- had shortness of breath, felt really cold and had shaking chills without fever. nauseated. Monday and Monday stay in bed all day and miesha continues call [facility] to take her to the hospital. [facility] report found Mrs. Stone outside confused and wandering around. Was noted to have a urticaria this morning as well as fever. -Repeat chest x-ray and urinalysis showed no evidence of infection. CT of abdomen and right upper quadrant ultrasound are negative for signs of infection. She has reported symptoms of abdominal discomfort and nausea, the symptoms are no longer present -Hold on further antibiotic therapy as likelihood of infection is very low -She did have a cough today so a 4 panel respiratory virus swab was done including Covid, flu A/B, and RSV which were all negative. 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 Arrington is Provider for this, seen as Outpatient Clinic Hypothyroidism- TSH 12.43 in ER -restart Synthroid 100 mcg po daily Maintenance issues - - DVT prophylaxis - Xarelto 15 mg daily - GI prophylaxis -not indicated - Nutrition - regular diet - White catheter - not indicated CODE STATUS - FULL CODE- will let her Sons decide if she needs to be kept on life support. Disposition: I did speak with the family and did receive good information from them as possible other reasons for her fever and confusion including heavy metal toxicity and inflammatory disorders. We will check labs for this. I did talk with them about possibly transferring her if we are unable to find a cause to the [facility] in [place] as they have rheumatology. I will speak with them tomorrow pending the outcome of the labs ordered overnight. Shirley Gibson, DO
[2021-02-09] MEDS ORDERED: Meropenem 1 GM in Sodium Chloride 0.9% 100 ML IV SCH (16:00)
[2021-02-09] MEDS ORDERED: Vancomycin 1 GM SDV IV SCH (16:00)
[2021-02-09 17:22] VITALS: BP 102/40; PULSE 76
[2021-02-09] MEDS: Rivaroxaban 15 MG Tab PO SCH (17:35)
--- NOTE | 2021-02-09 20:07 | PCM.DCSUM1 ---
Discharge Summary - Hospital Course Free Text/Narrative:: Ms. Stone is a 80-year-old white female who originally presented on 02/06 with confusion after being found by neighbors. It was initially thought she may have some component of CHF however on further examination she was experiencing fevers along with the confusion and a headache. She denied being ill prior to this. He states that the last time she was in company was on 31 January when she met up with her family. She states that none of them were ill at the time. She has a history significant for rheumatoid arthritis but denies any joint inflammation. She does not take methotrexate as she had a bad reaction to it. She also has a very remote history of drug-induced lupus. She has never had fevers like this in the past. She did endorse a rash with the initial fever however on subsequent fevers did not have any rashes present. Ms. Stone had an extensive work-up with imaging that included: A CT head negative for an acute process, chest x-ray negative for an acute process, CT abdomen and pelvis that showed gallstones and diverticula without evidence of infection, and a right upper quadrant ultrasound that showed gallstones and biliary sludge without evidence of infection or inflammation. Her laboratory values were significant for a progressing megaloblastic anemia initial hemoglobin 12.2 final hemoglobin 9.6, initial hematocrit 36.7 final hematocrit 29.7, initial MCV 99 final MCV 104. She also had a low platelet count that was initially 127 with a final value of 94. Her percentage of reticulocytes was 0.8. Her inflammatory labs were significant for an ESR of 97 a CRP that was originally 4.02 that sunny to 21.5 lactate dehydrogenase 416, and alkaline phosphatase of 199. Her initial liver labs showed a mild elevation in AST of 66 and a mild elevation in bilirubin of 1.5 however by discharge her bilirubin was 1.8 with a direct of 1.31, AST of 159, ALT of 84. Her TSH was significantly elevated at 12.432. She had urine cultures drawn and a urinalysis done that was negative, and blood cultures that were negative. She had influenza AMB negative, RSV negative, and Covid negative. During her stay Ms. Stone continued to have daily fevers up to 102. She was initially treated with meropenem and vancomycin for an unknown infection. Once infection was ruled out the antibiotics were stopped however the transferring doctor preferred she get a dose of meropenem and vancomycin prior to transfer and that was done. She was maintained on her home dose of amiodarone and metoprolol but her diuretics including Lasix, Bumex, and spironolactone were stopped. Her vitals had remained stable until the day of discharge when she exp erienced hypotension and was placed on vasopressors to maintain a map of 65. Due to concerns for her needing specialty management including rheumatology, hematology, and infectious disease she was transferred for a higher level of care at [facility]. She was excepted by Dr. Almendarez and admitted to their ICU. Diagnosis: Stroke: No Modified Sofi Scale: Slight Disable;Unable to Carry Out Prev Act.Able to Look After Affairs Modified [place] Scale Score: 2 - Discharge Data Discharge Date: 02/09/21 Discharge Disposition: Home, Self-Care 01 Condition: Good - Referral to Home Health Primary Care Physician: PCP None - Discharge Diagnosis/Problem(s) (1) Fever of unknown origin (FUO) Status: Acute (2) Megaloblastic anemia SNOMED Code(s): 43664339 ICD Code: D53.1 - OTHER MEGALOBLASTIC ANEMIAS, NOT ELSEWHERE CLASSIFIED Status: Acute - Discharge Plan Home Medications: Home Meds Aspirin [Low Dose Aspirin EC] 81 mg PO DAILY 04/19/16 [History] Biotin 5,000 mcg PO DAILY 04/19/16 [History] Gabapentin [Neurontin] 600 mg PO BID 04/19/16 [History] Gluc White 2KCl/Chondr/Vit C/Herminio [Glucosamine-Chondr Complex] 1,500 mg PO BID 04/19/16 [History] Levothyroxine Sodium [Synthroid] 100 mcg PO ACBREAKFAST 04/19/16 [History] Loperamide [Imodium] 2 mg PO DAILY 04/19/16 [History] Oxybutynin Chloride 5 mg PO DAILY 04/19/16 [History] Ubidecarenone [Coenzyme Q10] 10 mg PO DAILY 04/19/16 [History] Calcium Carbonate/Vitamin D3 [Calcium 600 + Vit D Tablet] 1 tab PO DAILY 05/20/19 [History] Amiodarone [Cordarone] 200 mg PO DAILY 12/10/20 [History] Bumetanide 0.5 mg PO DAILY 12/10/20 [History] Rivaroxaban [Xarelto] 15 mg PO DAILY 12/10/20 [History] Spironolactone [Aldactone] 12.5 mg PO DAILY 12/10/20 [History] atorvaSTATin [Lipitor] 20 mg PO DAILY 12/10/20 [History] Bumetanide [Bumex] 0.5 mg PO DAILY 02/06/21 [History] Clopidogrel [Plavix] 75 mg PO DAILY 02/06/21 [History] Cyanocobalamin (Vitamin B-12) [B-12] 1,200 mcg PO DAILY 02/06/21 [History] Furosemide [Lasix] 20 mg PO DAILY 02/06/21 [History] Gabapentin [Neurontin] 600 mg PO BID 02/06/21 [History] Multivitamin [Multi-Day Vitamins] 1 tab PO DAILY 02/06/21 [History] Simvastatin 20 mg PO ACDINNER 02/06/21 [History] Tamoxifen [Nolvadex] 20 mg PO DAILY 02/06/21 [History] Zolpidem Tartrate [Ambien] 10 mg PO BEDTIME PRN 02/06/21 [History] Metoprolol Succinate 12.5 mg PO BID 02/07/21 [History] Norepinephrine [Levophed] 4 mg IV TITRATE sdv 02/09/21 [Rx] Forms: ED Department Discharge Referrals: PCP,None [Primary Care Provider] - - Discharge Summary/Plan Comment DC Time >30 min.: Yes Discharge Summary/Plan Comment: She will be transferred to [place], admitting physician Dr. Almendarez. She will likely need consultations with rheumatology, hematology, and infectious disease to evaluate her fever of unknown origin. - General Info Date of Service: 02/09/21 Admission Dx/Problem (Free Text: Fever of unknown origin, undifferentiated shock Subjective Update: Ms. Stone continued to have temperatures up to 102 overnight last night despite being given Tylenol regularly. Midday she began to have systolic blood pressures in the 70s and was started on vasopressors to maintain a map of 65. During this whole time she was alert and oriented. She did have a break of her fever just prior to transfer with a temperature of 99. I did speak with her family and her about transfer and they were happy with the decision. Functional Status: Reports: Tolerating Diet, Ambulating, Urinating - Review of Systems General: Reports: Fever, Fatigue, Chills, Appetite HEENT: Reports: Headaches (Mild headache with fevers). Denies: Sore Throat Pulmonary: Reports: Cough (Mild nonproductive). Denies: Shortness of Breath, Wheezing Cardiovascular: Reports: Lightheadedness (1 time during the morning when getting up to urinate). Denies: Chest Pain, Palpitations, Edema Gastrointestinal: Reports: Other (Mild abdominal discomfort after eating). Denies: Constipation, Diarrhea, Nausea, Vomiting Genitourinary: Denies: Dysuria, Frequency, Pain, Urgency Musculoskeletal: Reports: No Symptoms. Denies: Joint Pain, Joint Swelling Skin: Reports: No Symptoms. Denies: Rash Neurological: Reports: Headache (Mild headache with fevers). Denies: Confusion, Weakness Psychiatric: Reports: No Symptoms. Denies: Confusion, Depression, Anxiety - Patient Data Vitals - Most Recent: Last Vital Signs Temp 100.4 F 02/09/21 16:00 Pulse 76 02/09/21 17:00 Resp 16 02/09/21 17:00 BP 102/40 L 02/09/21 17:00 Pulse Ox 97 02/09/21 17:00 Weight - Most Recent: 144 lb I&O - Last 24 hours: Intake & Output 02/09/21 02/09/21 02/09/21 06:59 14:59 22:59 Intake Total 2137 480 4228 Output Total 50 200 Balance 2087 280 4228 Lab Results - Last 24 hrs: Laboratory Results - last 24 hr 02/09/21 02/09/21 02/09/21 Range/Units 04:30 04:30 08:50 WBC 9.6 (4.5-11.0) K/uL RBC 2.85 L (3.30-5.50) M/uL Hgb 9.6 L (12.0-15.0) g/dL Hct 29.7 L (36.0-48.0) % MCV 104 H (80-98) fL MCH 34 H (27-31) pg MCHC 32 (32-36) % Plt Count 94 L (150-400) K/uL ESR 97 H (0-25) mm/hr Percent Retic (0.5-1.5) % Sodium 134 L (140-148) mmol/L Potassium 3.9 (3.6-5.2) mmol/L Chloride 103 (100-108) mmol/L Carbon Dioxide 20 L (21-32) mmol/L Anion Gap 14.9 H (5.0-14.0) mmol/L BUN 17 (7-18) mg/dL Creatinine 1.2 H (0.6-1.0) mg/dL Est Cr Clr Drug Dosing 34.21 mL/min Estimated GFR (MDRD) 43 L (>60) Glucose 115 H (74-106) mg/dL Lactic Acid (0.4-2.0) mmol/L Calcium 7.0 L (8.5-10.1) mg/dL Total Bilirubin 1.8 H D (0.2-1.0) mg/dL Direct Bilirubin 1.31 H (0.0-0.2) mg/dL AST 159 H D (15-37) U/L ALT 84 H (12-78) U/L Alkaline Phosphatase (46-116) U/L Lactate Dehydrogenase 416 H (82-234) U/L C-Reactive Protein 21.50 H (0.0-0.3) mg/dL Albumin (3.4-5.0) g/dL Triglycerides (15-150) mg/dL Cholesterol (0-200) mg/dL LDL Cholesterol Direct (0-100) mg/dL HDL Cholesterol (40-60) mg/dL 02/09/21 02/09/21 02/09/21 Range/Units 08:50 08:50 08:50 WBC (4.5-11.0) K/uL RBC (3.30-5.50) M/uL Hgb (12.0-15.0) g/dL Hct (36.0-48.0) % MCV (80-98) fL MCH (27-31) pg MCHC (32-36) % Plt Count (150-400) K/uL ESR (0-25) mm/hr Percent Retic 0.8 (0.5-1.5) % Sodium (140-148) mmol/L Potassium (3.6-5.2) mmol/L Chloride (100-108) mmol/L Carbon Dioxide (21-32) mmol/L Anion Gap (5.0-14.0) mmol/L BUN (7-18) mg/dL Creatinine (0.6-1.0) mg/dL Est Cr Clr Drug Dosing mL/min Estimated GFR (MDRD) (>60) Glucose (74-106) mg/dL Lactic Acid (0.4-2.0) mmol/L Calcium (8.5-10.1) mg/dL Total Bilirubin (0.2-1.0) mg/dL Direct Bilirubin (0.0-0.2) mg/dL AST (15-37) U/L ALT (12-78) U/L Alkaline Phosphatase 199 H (46-116) U/L Lactate Dehydrogenase (82-234) U/L C-Reactive Protein (0.0-0.3) mg/dL Albumin (3.4-5.0) g/dL Triglycerides 117 (15-150) mg/dL Cholesterol 80 (0-200) mg/dL LDL Cholesterol Direct 41 (0-100) mg/dL HDL Cholesterol 15 L (40-60) mg/dL 02/09/21 02/09/21 Range/Units 15:13 15:13 WBC (4.5-11.0) K/uL RBC (3.30-5.50) M/uL Hgb (12.0-15.0) g/dL Hct (36.0-48.0) % MCV (80-98) fL MCH (27-31) pg MCHC (32-36) % Plt Count (150-400) K/uL ESR (0-25) mm/hr Percent Retic (0.5-1.5) % Sodium (140-148) mmol/L Potassium (3.6-5.2) mmol/L Chloride (100-108) mmol/L Carbon Dioxide (21-32) mmol/L Anion Gap (5.0-14.0) mmol/L BUN (7-18) mg/dL Creatinine (0.6-1.0) mg/dL Est Cr Clr Drug Dosing mL/min Estimated GFR (MDRD) (>60) Glucose (74-106) mg/dL Lactic Acid 2.4 H (0.4-2.0) mmol/L Calcium (8.5-10.1) mg/dL Total Bilirubin (0.2-1.0) mg/dL Direct Bilirubin (0.0-0.2) mg/dL AST (15-37) U/L ALT (12-78) U/L Alkaline Phosphatase (46-116) U/L Lactate Dehydrogenase (82-234) U/L C-Reactive Protein (0.0-0.3) mg/dL Albumin 1.9 L (3.4-5.0) g/dL Triglycerides (15-150) mg/dL Cholesterol (0-200) mg/dL LDL Cholesterol Direct (0-100) mg/dL HDL Cholesterol (40-60) mg/dL JOSE MANUEL Results - Last 24 hrs: Microbiology 02/07/21 14:28 Aerobic Blood Culture - Preliminary Blood - Arm, Left NO GROWTH AFTER 2 DAYS Anaerobic Blood Culture - Preliminary NO GROWTH AFTER 2 DAYS 02/07/21 14:20 Aerobic Blood Culture - Preliminary Blood - Arm, Left NO GROWTH AFTER 2 DAYS Anaerobic Blood Culture - Preliminary NO GROWTH AFTER 2 DAYS 02/06/21 23:43 Urine Culture - Final Urine, Quick Cath (In-Out) NO GROWTH AFTER 2 DAYS Med Orders - Current: Current Medications Discontinued Medications Acetaminophen (Acetaminophen 325 Mg Tab) 650 mg PO Q4H PRN PRN Reason: Pain (Mild 1-3)/fever Last Admin: 02/08/21 18:27 Dose: 650 mg Documented by: Acetaminophen (Acetaminophen 500 Mg Tab) 1,000 mg PO Q6H PRN PRN Reason: Fever Last Admin: 02/09/21 17:59 Dose: 1,000 mg Documented by: Albuterol (Albuterol 0.083% 2.5 Mg/3 Ml Neb Soln) 2.5 mg NEB Q4H PRN PRN Reason: Shortness Of Breath/wheezing Albuterol/Ipratropium (Albuterol/Ipratropium 3.0-0.5 Mg/3 Ml Neb Soln) 3 ml NEB QID PRN PRN Reason: Shortness Of Breath/wheezing Amiodarone HCl (Amiodarone 200 Mg Tab) 200 mg PO DAILY [facility] Last Admin: 02/09/21 08:08 Dose: 200 mg Documented by: Aspirin (Aspirin 81 Mg Tab.Ec) 81 mg PO DAILY [facility] Last Admin: 02/09/21 08:06 Dose: 81 mg Documented by: Atorvastatin Calcium (Atorvastatin 20 Mg Tab) 20 mg PO DAILY [facility] Last Admin: 02/09/21 08:03 Dose: 20 mg Documented by: Bisacodyl (Bisacodyl 5 Mg Tab) 5 mg PO DAILY PRN PRN Reason: Constipation Bumetanide (Bumetanide 1 Mg Tab) 0.5 mg PO DAILY [facility] Last Admin: 02/08/21 11:00 Dose: Not Given Documented by: Bumetanide (Bumetanide 1 Mg Tab) 0.5 mg PO DAILY [facility] Calcium Carbonate (Calcium Carbonate/Vitamin D3 1500 Mg-400 Units Tab) 1 tab PO DAILY [facility] Last Admin: 02/09/21 08:03 Dose: 1 tab Documented by: Clopidogrel Bisulfate (Clopidogrel 75 Mg Tab) 75 mg PO DAILY [facility] Last Admin: 02/09/21 08:05 Dose: 75 mg Documented by: Cyanocobalamin (Cyanocobalamin (Vitamin B12) 1,000 Mcg Tab) 1,000 mcg PO DAILY [facility] Last Admin: 02/09/21 08:04 Dose: 1,000 mcg Documented by: Diphenhydramine HCl (Diphenhydramine 25 Mg Cap) 25 mg PO Q6H PRN PRN Reason: Itching Last Admin: 02/07/21 21:23 Dose: 25 mg Documented by: Docusate Sodium (Docusate Sodium 100 Mg Cap) 100 mg PO BID PRN PRN Reason: Constipation Famotidine (Famotidine 20 Mg Tab) 20 mg PO BID [facility] Last Admin: 02/09/21 08:07 Dose: 20 mg Documented by: Furosemide (Furosemide 20 Mg Tab) 20 mg PO DAILY [facility] Last Admin: 02/08/21 11:01 Dose: Not Given Documented by: Gabapentin (Gabapentin 300 Mg Cap) 600 mg PO BID [facility] Last Admin: 02/09/21 08:09 Dose: 600 mg Documented by: Sodium Chloride (Normal Saline) 1,000 mls @ 500 mls/hr IV ASDIRECTED [facility] Last Admin: 02/06/21 21:01 Dose: 500 mls/hr Documented by: Ceftriaxone Sodium 1 gm/ (Sodium Chloride) 50 mls @ 100 mls/hr IV ONETIME ONE Stop: 02/06/21 22:44 Last Admin: 02/06/21 22:27 Dose: 100 mls/hr Documented by: Ceftriaxone Sodium 1 gm/ (Sodium Chloride) 50 mls @ 100 mls/hr IV Q24H [facility] Sodium Chloride (Normal Saline) 1,000 mls @ 75 mls/hr IV ASDIRECTED [facility] Last Admin: 02/07/21 05:57 Dose: 75 mls/hr Documented by: Sodium Chloride (Normal Saline) 1,000 mls @ 50 mls/hr IV ASDIRECTED [facility] Meropenem 1 gm/ Sodium (Chloride) 100 mls @ 200 mls/hr IV Q8H [facility] Last Admin: 02/08/21 05:47 Dose: 200 mls/hr Documented by: Sodium Chloride (Normal Saline) 500 mls @ 250 mls/hr IV .BOLUS ONE Stop: 02/07/21 15:49 Last Admin: 02/07/21 14:48 Dose: Not Given Documented by: Vancomycin HCl 1 gm/ Sodium (Chloride) 250 mls @ 165 mls/hr IV Q24H [facility] Last Admin: 02/08/21 15:13 Dose: 165 mls/hr Documented by: Sodium Chloride (Normal Saline) 1,000 mls @ 500 mls/hr IV .BOLUS ONE Stop: 02/07/21 16:25 Last Admin: 02/07/21 14:47 Dose: 500 mls/hr Documented by: Sodium Chloride (Normal Saline) 70 mls @ 3 mls/sec IV ASDIRECTED [facility] Stop: 02/07/21 18:00 Last Admin: 02/07/21 15:28 Dose: 3 mls/sec Documented by: Sodium Chloride (Normal Saline) 1,000 mls @ 125 mls/hr IV ASDIRECTED [facility] Last Admin: 02/08/21 10:27 Dose: 125 mls/hr Documented by: Meropenem 1 gm/ Sodium (Chloride) 100 mls @ 200 mls/hr IV Q12H [facility] Last Admin: 02/08/21 17:02 Dose: 200 mls/hr Documented by: Dextrose/Water (Dextrose 5% In Water) 1,000 mls @ 50 mls/hr IV ASDIRECTED [facility] Last Admin: 02/09/21 11:11 Dose: 50 mls/hr Documented by: Sodium Chloride (Normal Saline) 1,000 mls @ 100 mls/hr IV ASDIRECTED [facility] Last Admin: 02/09/21 15:35 Dose: 100 mls/hr Documented by: Norepinephrine Bitartrate 4 mg (/ Dextrose/Water) 250 mls @ 7.5 mls/hr IV TITRATE [facility]; Protocol Last Titration: 02/09/21 17:15 Dose: 10 mcg/min, 37.5 mls/hr Documented by: Meropenem 1 gm/ Sodium (Chloride) 100 mls @ 200 mls/hr IV Q8H [facility] Last Admin: 02/09/21 15:34 Dose: 200 mls/hr Documented by: Vancomycin HCl 1 gm/ Sodium (Chloride) 250 mls @ 165 mls/hr IV Q24H [facility] Last Admin: 02/09/21 16:37 Dose: 165 mls/hr Documented by: Iopamidol (Iopamidol 612 Mg/Ml 100 Ml Bottle) 96 ml IV . DIRECTED [facility] Stop: 02/07/21 18:00 Last Admin: 02/07/21 15:29 Dose: 96 ml Documented by: Levothyroxine Sodium (Levothyroxine 100 Mcg Tab) 100 mcg PO ACBREAKFAST [facility] Levothyroxine Sodium (Levothyroxine 112 Mcg Tab) 112 mcg PO ACBREAKFAST [facility] Last Admin: 02/09/21 07:55 Dose: 112 mcg Documented by: Loperamide HCl (Loperamide 2 Mg Cap) 2 mg PO DAILY [facility] Last Admin: 02/08/21 08:14 Dose: 2 mg Documented by: Metoprolol Succinate (Metoprolol Succinate 25 Mg Tab.Er) 12.5 mg PO BID [facility] Last Admin: 02/09/21 08:05 Dose: 12.5 mg Documented by: Metoprolol Tartrate (Metoprolol Tartrate 25 Mg Tab) 12.5 mg PO BID [facility] Last Admin: 02/07/21 01:15 Dose: 12.5 mg Documented by: Morphine Sulfate (Morphine 2 Mg/Ml Syringe) 2 mg IVPUSH Q2H PRN PRN Reason: Pain (severe 7-10) Last Admin: 02/07/21 02:40 Dose: 2 mg Documented by: Multivitamins/Minerals (Multivitamins With Iron/Calcium/Folic Acid/Minerals Tab) 1 tab PO DAILY [facility] Last Admin: 02/09/21 08:04 Dose: 1 tab Documented by: Ondansetron HCl (Ondansetron 4 Mg Tab.Dis) 4 mg PO Q6H PRN PRN Reason: Nausea able to take PO Ondansetron HCl (Ondansetron 4 Mg/2 Ml Sdv) 4 mg IV Q4H PRN PRN Reason: Nausea/Vomiting Last Admin: 02/09/21 11:06 Dose: 4 mg Documented by: Oxybutynin Chloride (Oxybutynin 5 Mg Tab) 5 mg PO DAILY [facility] Last Admin: 02/09/21 08:07 Dose: 5 mg Documented by: Oxycodone HCl (Oxycodone 5 Mg Tab) 5 mg PO Q4H PRN PRN Reason: Pain (moderate 4-6) Last Admin: 02/07/21 19:45 Dose: 5 mg Documented by: Pantoprazole Sodium (Pantoprazole 40 Mg Vial) 40 mg IV DAILY [facility] Last Admin: 02/07/21 11:39 Dose: 40 mg Documented by: Rivaroxaban (Rivaroxaban 15 Mg Tab) 15 mg PO QPM [facility] Last Admin: 02/09/21 17:35 Dose: 15 mg Documented by: Sodium Chloride (Sodium Chloride 0.9% 10 Ml Syringe) 10 ml FLUSH ASDIRECTED PRN PRN Reason: Keep Vein Open Last Admin: 02/06/21 21:01 Dose: 10 ml Documented by: Sodium Chloride (Sodium Chloride 0.9% 10 Ml Syringe) 10 ml FLUSH ONETIME ONE Stop: 02/07/21 14:51 Last Admin: 02/07/21 15:28 Dose: 10 ml Documented by: Spironolactone (Spironolactone 25 Mg Tab) 12.5 mg PO DAILY [facility] Last Admin: 02/08/21 11:00 Dose: Not Given Documented by: Tamoxifen Citrate (Tamoxifen 10 Mg Tab) 20 mg PO DAILY [facility] Vancomycin HCl (Vancomycin 1 Gm Sdv) 1 gm IV .PHARMACY TO DOSE [facility] Stop: 02/07/21 16:00 Vancomycin HCl (Vancomycin 1 Gm Sdv) 0 gm IV .PHARMACY TO DOSE [facility] Stop: 02/09/21 16:01 Zolpidem Tartrate (Zolpidem 5 Mg Tab) 10 mg PO BEDTIME PRN PRN Reason: Sleep Zolpidem Tartrate (Zolpidem 5 Mg Tab) 5 mg PO BEDTIME PRN PRN Reason: Sleep Last Admin: 02/07/21 01:18 Dose: 5 mg Documented by: - Exam General: Reports: Alert, Oriented, Cooperative, No Acute Distress HEENT: Reports: Pupils Equal, EOMI, Mucous Membr. Moist/[place] Lungs: Reports: Clear to Auscultation, Normal Respiratory Effort Cardiovascular: Reports: Regular Rate, Regular Rhythm GI/Abdominal Exam: Normal Bowel Sounds, Soft, Non-Tender, No Distention Back Exam: Reports: Normal Inspection. Denies: Paraspinal Tenderness, Vertebral Tenderness Extremities: Normal Inspection Skin: Reports: Warm, Dry, Intact, Other (Well-healing ulcer on the right leg with no erythema or edema) Neurological: Reports: No New Focal Deficit, Normal Speech Psy/Mental Status: Reports: Alert, Normal Affect, Normal Mood
== END 2021-02-09 18:15 | DRG 812 ==
LOC: JP.ED 19:51 → JP.MS 23:17 → JP.ICU 02-07 19:44
PROVIDERS: ADMIT Hospitalist; ATTEND Hospitalist
PROC: 3E033XZ Introduction of Vasopressor into Peripheral Vein, Percutaneous Approach (ICD-10-PCS; principal; 2021-02-09)
DX: R00.2 Palpitations (principal); D53.1 Other megaloblastic anemias, not elsewhere classified; F19.10 Other psychoactive substance abuse, uncomplicated; R53.1 Weakness; N17.9 Acute kidney failure, unspecified; R50.9 Fever, unspecified; M06.9 Rheumatoid arthritis, unspecified; N39.0 Urinary tract infection, site not specified; C44.90 Unspecified malignant neoplasm of skin, unspecified; I95.9 Hypotension, unspecified; I48.91 Unspecified atrial fibrillation; M19.90 Unspecified osteoarthritis, unspecified site; E03.9 Hypothyroidism, unspecified; Z85.3 Personal history of malignant neoplasm of breast; S81.802A Unspecified open wound, left lower leg, initial encounter; Z96.653 Presence of artificial knee joint, bilateral; I50.9 Heart failure, unspecified; Z79.02 Long term (current) use of antithrombotics/antiplatelets; N18.30 Chronic kidney disease, stage 3 unspecified; E86.0 Dehydration; Z20.822 Contact with and (suspected) exposure to COVID-19; Z79.82 Long term (current) use of aspirin; Z79.899 Other long term (current) drug therapy; Z79.01 Long term (current) use of anticoagulants; Z88.8 Allergy status to other drugs, medicaments and biological substances; Z79.890 Hormone replacement therapy; I25.2 Old myocardial infarction; Z95.5 Presence of coronary angioplasty implant and graft; Z85.828 Personal history of other malignant neoplasm of skin; Z90.49 Acquired absence of other specified parts of digestive tract; Z90.710 Acquired absence of both cervix and uterus; Z90.10 Acquired absence of unspecified breast and nipple
CPT/HCPCS: 0241U; 36415; 70450; 71045; 71046; 74177; 76705; 80048; 80053; 80305; 81001; 82040; 82175; 82247; 82248; 82465; 83010; 83605; 83615; 83655; 83690; 83718; 83721; 83735; 83825; 83880; 84075; 84145; 84443; 84450; 84460; 84478; 84484; 85025; 85027; 85045; 85651; 86140; 86431; 87040; 87086; 93005; 96365; 99285; A9270-GY; C9113; J0696; J2185; J2270; J2405; J3370; J7030; J7050; J7060; Q9967

== ENCOUNTER 2022-01-02 08:00 | Observation (INO) | payer MEDICARE, BC ==
[2022-01-02] MEDS ORDERED: Sodium Chloride 0.9% 10 ML Syringe FLUSH PRN (09:55)
[2022-01-02] MEDS ORDERED: Lactated Ringers 1,000 ML IV SCH (10:00)
[2022-01-02] MEDS ORDERED: cefTRIAXone 1 GM in Sodium Chloride 0.9% 50 ML IV ONE (10:07)
[2022-01-02] MEDS ORDERED: Sodium Chloride 0.9% 1,000 ML IV ONE (10:08)
[2022-01-02] MEDS ORDERED: Acetaminophen 1,000 MG in Premix Bag 1 BAG IV ONE (10:27)
[2022-01-02] MEDS ORDERED: Acetaminophen 500 MG Tab PO ONE (10:47)
[2022-01-02] MEDS ORDERED: Magnesium Hydroxide 400 MG/5 ML Susp 30 ML Cup PO PRN (14:59)
[2022-01-02] MEDS ORDERED: LORazepam 2 MG/ML SDV IVPUSH PRN (14:59)
[2022-01-02] MEDS ORDERED: Ondansetron 4 MG Tab.DIS PO PRN (14:59)
[2022-01-02] MEDS ORDERED: Ondansetron 4 MG/2 ML SDV IV PRN (14:59)
[2022-01-02 16:49] LABS: CORONAVIRUS COVID-19 NAA NEGATIVE (NEGATIVE)
[2022-01-02] MEDS: Acetaminophen 325 MG Tab PO PRN ×2 (18:15→23:39)
[2022-01-02] MEDS ORDERED: Sodium Chloride 0.9% 500 ML IV ONE ×2 (20:24→22:26)
[2022-01-02] MEDS ORDERED: GABAPENTIN 300 MG PO SCH (21:00)
[2022-01-02] MEDS ORDERED: Melatonin 3 MG Tab PO SCH (21:00)
[2022-01-02] MEDS: [UNRECOGNIZED DRUG - MIXTURE] PO SCH (22:10)
[2022-01-02] MEDS: Lactobacillus Rhamnosus GG (Probiotic) Cap PO SCH (22:11)
[2022-01-03] MEDS ORDERED: Levothyroxine 112 MCG Tab PO SCH (07:30)
[2022-01-03] MEDS: Acetaminophen 325 MG Tab PO PRN (07:37)
[2022-01-03 08:21] VITALS: BP 83/50; PULSE 88
[2022-01-03] MEDS ORDERED: Gabapentin 300 MG Cap PO SCH (09:00)
[2022-01-03] MEDS ORDERED: Furosemide 20 MG Tab PO SCH (09:00)
[2022-01-03] MEDS ORDERED: Spironolactone 25 MG Tab PO SCH (09:00)
[2022-01-03] MEDS ORDERED: Aspirin 81 MG Tab.EC PO SCH (09:00)
[2022-01-03] MEDS ORDERED: atorvaSTATin 20 MG Tab PO SCH (09:00)
[2022-01-03] MEDS ORDERED: Non-Formulary Medication 1 Each (Ubidecarenone [Coenzyme Q10] 10 MG Capsule) PO SCH (09:00)
[2022-01-03] MEDS ORDERED: Oxybutynin 5 MG Tab PO SCH (09:00)
[2022-01-03] MEDS ORDERED: Clopidogrel 75 MG Tab PO SCH (09:00)
[2022-01-03] MEDS ORDERED: Multivitamins with Iron/Calcium/Folic Acid/Minerals Tab PO SCH (09:00)
[2022-01-03] MEDS ORDERED: Cyanocobalamin (Vitamin B12) 1,000 MCG Tab PO SCH (09:00)
[2022-01-03] MEDS: Lactobacillus Rhamnosus GG (Probiotic) Cap PO SCH (09:31)
[2022-01-03] MEDS: [UNRECOGNIZED DRUG - MIXTURE] PO SCH (09:31)
[2022-01-03] MEDS: cefTRIAXone 1 GM in Sodium Chloride 0.9% 50 ML IV SCH ×2 (10:17→10:56)
[2022-01-03] MEDS ORDERED: Cefdinir 300 MG Cap PO ONE (10:45)
[2022-01-03] MEDS ORDERED: Rivaroxaban 15 MG Tab PO SCH (17:00)
== END 2022-01-03 12:15 | disposition home or self-care (01) ==
LOC: JP.ED 08:00 → JP.MS 14:12
PROVIDERS: ADMIT Internal Medicine; ATTEND Internal Medicine
DX: N30.00 Acute cystitis without hematuria (principal); A41.9 Sepsis, unspecified organism; A49.8 Other bacterial infections of unspecified site; N17.9 Acute kidney failure, unspecified; G44.209 Tension-type headache, unspecified, not intractable; I13.0 Hypertensive heart and chronic kidney disease with heart failure and stage 1 through stage 4 chronic kidney disease, or unspecified chronic kidney disease; I95.9 Hypotension, unspecified; I50.9 Heart failure, unspecified; N18.32 Chronic kidney disease, stage 3b; I48.0 Paroxysmal atrial fibrillation; I25.10 Atherosclerotic heart disease of native coronary artery without angina pectoris; I25.5 Ischemic cardiomyopathy; I25.2 Old myocardial infarction; Z95.5 Presence of coronary angioplasty implant and graft; E03.9 Hypothyroidism, unspecified; Z79.82 Long term (current) use of aspirin; Z79.890 Hormone replacement therapy; Z79.899 Other long term (current) drug therapy; Z20.822 Contact with and (suspected) exposure to COVID-19
CPT/HCPCS: 0241U; 36415; 80048; 83605; 83735; 84145; 84439; 84443; 85025; 85379; 86140; 87040; 87086; 93005; 93010; 96365; 97116-GP; 97161-GP; 99284; 99285-25; A9270-GY; G0378; J0696; J3490; J7030; J7040; Q0162; U0002

== ENCOUNTER 2022-12-12 19:58 | Emergency (ER) | payer MEDICARE, BC ==
[2022-12-12 21:42] LABS: BASOPHILS ABSOLUTE AUTO 0.01 K/uL (0.00-0.10); BASOPHILS PERCENT AUTO 0.3 % (0.1-1.3); EOSINOPHILS ABSOLUTE AUTO 0.02 K/uL (0.00-0.40); EOSINOPHILS PERCENT AUTO 0.6 % (0.0-5.4); HEMATOCRIT 36.1 % (34.3-46.0); HEMOGLOBIN 11.8 g/dL (11.2-15.5); IMMATURE GRAN ABSOLUTE AUTO 0.01 K/uL (0.00-0.23); IMMATURE GRAN PERCENT AUTO 0.3 % (0.0-0.7); LYMPHOCYTES ABSOLUTE AUTO 1.76 K/uL (0.8-3.3); MEAN CORPUSCULAR HEMOGLOBIN 32.6 pg (31.6-35.5); MEAN CORPUSCULAR HGB CONC 32.7 g/dL (31.6-35.5); MEAN CORPUSCULAR VOLUME 99.7 fL (81.4-99.0); MONOCYTES ABSOLUTE AUTO 0.38 K/uL (0.20-0.90); MONOCYTES PERCENT AUTO 10.6 % (3.3-12.6); NEUTROPHILS ABSOLUTE AUTO 1.41 K/uL (1.0-7.6); NEUTROPHILS PERCENT AUTO 39.2 % (40.0-78.1); PLATELET COUNT,PLT 128 K/uL (130-375); RED BLOOD CELL COUNT 3.62 M/uL (3.77-5.24); WHITE BLOOD CELL COUNT,WBC 3.6 K/uL (3.2-11.0)
[2022-12-12 22:11] LABS: TROPONIN I HIGH SENSITIVITY 75.1 pg/mL (<=60.3)
[2022-12-12 22:14] LABS: A/G RATIO 0.7 (1.2-2.2); ALANINE AMINOTRANSFERASE,ALT 47 U/L (12-78); ALKALINE PHOSPHATASE 168 U/L (46-116); ASPARTATE AMNIOTRANSFERASE,AST 51 U/L (15-37); BILIRUBIN TOTAL 0.6 mg/dL (0.2-1.0); BLOOD UREA NITROGEN,BUN 28 mg/dL (7-18); CALCIUM 9.1 mg/dL (8.5-10.1); CARBON DIOXIDE,CO2 28 mmol/L (21-32); CHLORIDE,CL 104 mmol/L (100-108); CREATININE 1.2 mg/dL (0.6-1.0); EST CRCL DRUG DOSING (CG) 33.65 mL/min; ESTIMATED GFR 46 mL/min (>60); GLUCOSE RANDOM 99 mg/dL (74-106); POTASSIUM,K 4.2 mmol/L (3.6-5.2); PROTEIN TOTAL,TP 7.2 g/dL (6.4-8.2); SODIUM,NA 138 mmol/L (140-148); TSH ULTRASENSITIVE 2.154 uIU/mL (0.358-3.740)
[2022-12-12 22:17] LABS: ANION GAP 10.2 mmol/L (5.0-14.0)
[2022-12-12 22:22] LABS: BILIRUBIN,URINE NEGATIVE (NEGATIVE); COLOR,URINE YELLOW (YELLOW); GLUCOSE,URINE NEGATIVE (NEGATIVE); KETONES,URINE NEGATIVE (NEGATIVE); LEUKOCYTE ESTERASE,URINE NEGATIVE (NEGATIVE); NITRITE,URINE NEGATIVE (NEGATIVE); OCCULT BLOOD,URINE NEGATIVE (NEGATIVE); PH,URINE 5.5 (5.0-8.0); PROTEIN,URINE TRACE mg/dL (NEGATIVE); UROBILINOGEN,URINE 0.2 EU/dL (0.2-1.0)
[2022-12-12 22:30] LABS: AMORPHOUS SEDIMENT,URINE NOT SEEN; APPEARANCE,URINE SLIGHTLY CLOUDY (CLEAR); BACTERIA,URINE FEW; EPITHELIAL CELLS,URINE FEW; MUCUS,URINE RARE; RBC,URINE 0-5 (0-5); WBC,URINE 0-5 (0-5)
[2022-12-12] MEDS ORDERED: Sodium Chloride 0.9% 10 ML Syringe FLUSH PRN (23:04)
[2022-12-13] MEDS ORDERED: Ondansetron 4 MG/2 ML SDV IVPUSH ONE (00:58)
[2022-12-13] MEDS ORDERED: Bumetanide 1 MG/4 ML MDV IVPUSH STA (01:07)
[2022-12-13] MEDS ORDERED: Sodium Chloride 0.9% 10 ML Syringe FLUSH PRN (01:07)
[2022-12-13] MEDS ORDERED: Melatonin 3 MG Tab PO PRN (01:07)
[2022-12-13] MEDS ORDERED: Ondansetron 4 MG Tab.DIS PO PRN (01:07)
[2022-12-13] MEDS ORDERED: Ondansetron 4 MG/2 ML SDV IV PRN ×2 (01:07→06:05)
[2022-12-13] MEDS: Acetaminophen 325 MG Tab PO PRN ×2 (01:41→06:01)
[2022-12-13 05:10] LABS: HEMATOCRIT 35.4 % (34.3-46.0); HEMOGLOBIN 11.6 g/dL (11.2-15.5); MEAN CORPUSCULAR HEMOGLOBIN 32.6 pg (31.6-35.5); MEAN CORPUSCULAR HGB CONC 32.8 g/dL (31.6-35.5); MEAN CORPUSCULAR VOLUME 99.4 fL (81.4-99.0); RED BLOOD CELL COUNT 3.56 M/uL (3.77-5.24); WHITE BLOOD CELL COUNT,WBC 3.4 K/uL (3.2-11.0)
[2022-12-13 05:30] LABS: ANION GAP 9.3 mmol/L (5.0-14.0); CALCIUM 9.1 mg/dL (8.5-10.1); CREATININE 1.2 mg/dL (0.6-1.0); EST CRCL DRUG DOSING (CG) 33.65 mL/min; POTASSIUM,K 3.7 mmol/L (3.6-5.2)
[2022-12-13] MEDS: Ondansetron 4 MG Tab.DIS PO PRN ×2 (06:25→12:45)
[2022-12-13] MEDS ORDERED: Pantoprazole 40 MG Tab.CR PO SCH (07:30)
[2022-12-13 09:23] VITALS: BP 111/55; PULSE 73
== END 2022-12-13 14:58 | disposition home or self-care (01) ==
LOC: JP.ED 19:58 → JP.ICU 12-13 00:52
PROVIDERS: ADMIT Internal Medicine; ATTEND Internal Medicine
DX: I50.9 Heart failure, unspecified (principal); I25.10 Atherosclerotic heart disease of native coronary artery without angina pectoris; I25.2 Old myocardial infarction; M19.90 Unspecified osteoarthritis, unspecified site; E03.9 Hypothyroidism, unspecified; Z79.82 Long term (current) use of aspirin; Z79.899 Other long term (current) drug therapy; Z79.01 Long term (current) use of anticoagulants; Z20.822 Contact with and (suspected) exposure to COVID-19
CPT/HCPCS: 36415; 71046; 80048; 80053; 81001; 83605; 83880; 84145; 84443; 84484; 85025; 85027; 87081; 87880; 93005; 96374; 96375; 99285; A9270; G0378; J2405; J3490; Q0162; U0002

== ENCOUNTER 2024-03-29 20:13 | Emergency (ER) | payer MEDICARE, BC ==
[2024-03-29 20:29] LABS: BASOPHILS ABSOLUTE AUTO 0.05 K/uL (0.00-0.10); BASOPHILS PERCENT AUTO 0.7 % (0.1-1.3); EOSINOPHILS ABSOLUTE AUTO 0.02 K/uL (0.00-0.40); EOSINOPHILS PERCENT AUTO 0.3 % (0.0-5.4); HEMOGLOBIN 12.1 g/dL (11.2-15.5); IMMATURE GRAN ABSOLUTE AUTO 0.03 K/uL (0.00-0.23); IMMATURE GRAN PERCENT AUTO 0.4 % (0.0-0.7); LYMPHOCYTES ABSOLUTE AUTO 1.93 K/uL (0.8-3.3); LYMPHOCYTES PERCENT AUTO 25.7 % (11.4-47.7); MEAN CORPUSCULAR HGB CONC 33.6 g/dL (31.6-35.5); MEAN CORPUSCULAR VOLUME 95.2 fL (81.4-99.0); NEUTROPHILS ABSOLUTE AUTO 4.88 K/uL (1.0-7.6); NEUTROPHILS PERCENT AUTO 64.9 % (40.0-78.1); PLATELET COUNT,PLT 191 K/uL (130-375); RED BLOOD CELL COUNT 3.78 M/uL (3.77-5.24); WHITE BLOOD CELL COUNT,WBC 7.5 K/uL (3.2-11.0)
[2024-03-29] MEDS ORDERED: Sodium Chloride 0.9% 1,000 ML IV SCH (20:30)
[2024-03-29] MEDS: Amiodarone 150 MG/3 ML SDV IVPUSH ONE (20:50)
[2024-03-29] MEDS: Sodium Chloride 0.9% 100 ML IV SCH (20:50)
[2024-03-29 20:53] LABS: ANION GAP 16.8 mmol/L (5.0-14.0); CALCIUM 9.8 mg/dL (8.5-10.1); CREATININE 1.3 mg/dL (0.6-1.0); EST CRCL DRUG DOSING (CG) 30.02 mL/min; POTASSIUM,K 3.8 mmol/L (3.6-5.2)
[2024-03-29] MEDS: Sodium Chloride 0.9% 500 ML IV SCH (21:20)
[2024-03-29] MEDS: Prochlorperazine 10 MG/2 ML SDV IVPUSH ONE (21:28)
[2024-03-29] MEDS: Diltiazem 25 MG/5 ML SDV IVPUSH ONE (21:38)
[2024-03-29] MEDS ORDERED: Heparin Sodium 5,000 Units/ML Vial IVPUSH ONE (22:23)
[2024-03-29 22:27] LABS: CORONAVIRUS COVID-19 NAA NEGATIVE (NEGATIVE); INFLUENZA A NAA NEGATIVE (NEGATIVE); INFLUENZA B NAA NEGATIVE (NEGATIVE); RESPIRATORY SYNCYTIAL VIR NAA NEGATIVE (NEGATIVE)
[2024-03-29] MEDS: Heparin Sodium 5,000 Units/ML Vial IV ONE (22:36)
[2024-03-29] MEDS: Heparin Sodium/D5W 25,000 UNITS/500 ML BAG IV SCH (22:39)
[2024-03-29] MEDS: Diltiazem 100 MG in Sodium Chloride 0.9% 100 ML IV SCH (22:47)
[2024-03-30 00:22] VITALS: BP 110/65; PULSE 114
== END 2024-03-30 00:35 | disposition home or self-care (01) ==
LOC: JP.ED 20:13
DX: I21.4 Non-ST elevation (NSTEMI) myocardial infarction (principal); I25.10 Atherosclerotic heart disease of native coronary artery without angina pectoris; I25.2 Old myocardial infarction; E03.9 Hypothyroidism, unspecified; Z90.49 Acquired absence of other specified parts of digestive tract; Z90.710 Acquired absence of both cervix and uterus; Z79.82 Long term (current) use of aspirin; Z95.5 Presence of coronary angioplasty implant and graft; Z79.899 Other long term (current) drug therapy; Z79.890 Hormone replacement therapy
CPT/HCPCS: 0241U; 36415; 71045; 80048; 83690; 84484; 85025; 93005; 96361; 96365; 96366; 96368; 96375; 96376; 99285; J0282; J0780; J1644; J3490; J7030; 93010